=== PATIENT | female | born 1985 | race Caucasian/White ===

== ENCOUNTER 2016-08-26 11:24 | Emergency (ER) | payer MEDICAID, OTHER ==
[~2016-08-26] VITALS: Ht 177.8 cm; Wt 86.2 kg
[~2016-08-26 11:24] MED LIST: AGM875T PO; ALBU8.5H4 IH; AMOX500C2 PO; BSP10T PO; BUSP15TA60 PO; BUTA1CAP39 PO; CEPH500C PO; CIPR500T4 PO; CIPR500T78 PO; CPR500T PO; CYCL10TA9 PO; DOXY100C49 PO; FAMO20TA5 PO; FLT05NA16 NSEACH; FLUO20CA25 PO; FLUO20CA42 PO; FLUO40CA12 PO; FLUT9.9S NS; FOLI0.4T2 PO; HYDR-3714 PO; HYDR-3812 PO; METR500T PO; METR70GE8 VG; MGCT300B PO; NAPR500T3 PO; OMEP40CA36 PO; ONDA8TAB13 PO; PHEN100T26 PO; PHEN200T27 PO; POLY119P PO; PRCD5U PO; PRD20T PO; PRD50T PO; PREN1TAB19 PO; PREN1TAB71 PO; PRM25T PO; SUCR1ORA5 PO; SULF-222 PO; TOBR5DRO12 OS; TRAM50TA2 PO
[2016-08-26] MEDS ORDERED: BUSPAR (11:39)
[2016-08-26] MEDS ORDERED: MED FOR ANXIETY (11:39)
--- NOTE | 2016-08-26 11:45 | ED Cough/URI ---
General Chief Complaint: Cough/Cold/Flu Symptoms Stated Complaint: CONGESTION/SINUS PRESSURE Nursing Triage Note: COUGH CONGESTION FOR SEVERAL DAYS WITH SINUS PRESSURE. WOULD LIKE A PREG TEST ALSO Source: patient Exam Limitations: no limitations History of Present Illness Time seen by provider: 11:45 Initial Comments 31-year-old female patient presents to the emergency department complains of cough, sinus congestion, sinus pressure/pain, sore throat the last several days. (+) green nasal dsch. Patient also states she would like to have a test done as her period is 1-2 days late. LMP 07/25/16. Denies abdominal pain/cramping, nausea, vomiting, vaginal discharge, vaginal bleeding, dysuria, frequency, hematuria. Timing/Duration: other (3-4 days) Severity/Quality: dry cough Prior Episodes/Possible Cause: no prior episodes Modifying Factors: Worse With Coughing, Worse With Other (palpation of the sinuses) Allergies and Home Medications Allergies Coded Allergies: Sulfa (Sulfonamide Antibiotics) (Unverified Allergy, Unknown, 08/18/14) Home Medications (Reported) (Reported) Cephalexin 500 Mg Capsule #30 500 MG PO TID Prescribed by: RENATA CERDA on 08/26/16 1159 Prednisone 20 Mg Tab #10 40 MG PO DAILY Prescribed by: RENATA CERDA on 08/26/16 1159 Constitutional: No chills, No dizziness, No fever, malaise EENTM: see HPI Respiratory: see HPI Cardiovascular: no symptoms reported Gastrointestinal: no symptoms reported Genitourinary: see HPINo decreased output, No discharge, No dysuria, No frequency, No hematuria, No pain LMP: Jul 25, 2016 Musculoskeletal: no symptoms reported Skin: no symptoms reported Psychiatric/Neurological: No Symptoms Reported All Other Systems Reviewed Negative Unless Noted: Yes (Negative excepted noted.) Past Rmtewqy-Kxzmav-Obkqvb Hx Patient Social History Alcohol Use: Occasionally Uses Recreational Drug Use: No Smoking Status: Never a Smoker Type Used: Cigarettes Recent Foreign Travel: No Contact w/Someone Who Travel: No Recent Infectious Disease Expo: No Recent Hopitalizations: No Physical Abuse Screen: No Sexual Abuse: No Immunizations Up To Date Tetanus Booster (TDap): Unknown Date of Influenza Vaccine: May 20, 2012 Seasonal Allergies Seasonal Allergies: No Surgeries HX Surgeries: Yes (left knee surgery, WISDOM TEETH, D&C) Surgeries: Section, Gallbladder, Orthopedic Respiratory Hx Respiratory Disorders: No Cardiovascular Hx Cardiac Disorders: No Neurological Hx Neurological Disorders: Yes Neurological Disorders: Meningitis Reproductive System Hx Reproductive Disorders: No Sexually Transmitted Disease: Yes HIV/AIDS: No Female Reproductive Disorders: Denies, 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 Genitourinary Hx Genitourinary Disorders: Yes Genitourinary Disorders: UTI-Chronic Gastrointestinal Hx Gastrointestinal Disorders: Yes Gastrointestinal Disorders: Gastroesophageal Reflux, Hiatal Hernia Musculoskeletal Hx Musculoskeletal Disorders: No Endocrine Hx Endocrine Disorders: No HEENT HX ENT Disorders: No Cancer Hx Cancer: No Psychosocial Hx Psychiatric Problems: Yes Behavioral Health Disorders: Anxiety, PTSD, Depression Integumentary HX Skin/Integumentary Disorder: No Blood Transfusions Hx Blood Disorders: No Adverse Reaction to a Blood Tr: No Reviewed Nursing Assessment Reviewed/Agree w Nursing PMH: Yes Family Medical History Significant Family History: No Pertinent Family Hx Physical Exam Vital Signs Vital Sign - Last 12Hours 08/26/16 08/26/16 11:27 12:18 Temp 98.7 Pulse 96 Resp 18 B/P 110/70 Pulse Ox 98 O2 Delivery Room Air Capillary Refill : Less Than 3 Seconds General Appearance: WD/WN no apparent distress Eyes: Bilateral Eye EOMI, Bilateral Eye Normal Inspection, Bilateral Eye PERRL HEENT: PERRL/EOMI TMs normal pharyngeal erythema other ((+) nasal congestion. (+) maxillary sinus tenderness.) Neck: non-tender full range of motion supple lymphadenopathy (R) lymphadenopathy (L) Respiratory: lungs clear normal breath sounds no respiratory distress Cardiovascular: normal peripheral pulses regular rate, rhythm no edema no murmur Gastrointestinal: non tender softNo distended Extremities: no pedal edema no calf tenderness normal capillary refill Neurologic/Psychiatric: alert normal mood/affect oriented x 3 Skin: normal color warm/dry Progress/Results/Core Measures Results/Orders Vital Signs/I&O Vital Sign - Last 12Hours 08/26/16 08/26/16 11:27 12:18 Temp 98.7 Pulse 96 96 Resp 18 18 B/P 110/70 Pulse Ox 98 O2 Delivery Room Air Blood Pressure Mean: 83 Departure Communication Progress Notes Patient seen and evaluated. Patient denies any or GI symptoms. Patient advised to use an irvs-yer-cdctnbn test from [facility], [facility], etc. All return precautions discussed with the patient. Patient voices understanding and agrees with the treatment plan. Patient case discussed with Dr. Varela, he agrees with the plan of care. Impression Impression: Primary Impression: Sinusitis, acute maxillary Qualified Code: J01.00 - Acute maxillary sinusitis, unspecified Disposition: HOME, SELF-CARE Condition: Improved Departure-Patient Inst. Decision time for Depature: 11:57 Referrals: [facility] (PCP/Family) Primary Care Physician Patient Instructions: Sinusitis, Adult (DC) Add. Discharge Instructions: All discharge instructions reviewed with patient and/or family. Voiced understanding. Medications as instructed. Afrin nasal spray and saline nasal spray nuty-vfm-kjsezkk as needed for congestion. Tylenol gudi-smq-oplcfrf as needed for headache or pain. Use an ysls-utj-tmmryxr test. If test is negative, you may use ibuprofen 800 mg by mouth every 8 hours as a for pain or headache. Cool humidifier. Yitl-mcw-hsvawiz decongestants and antihistamines if needed. Follow-up with your family practitioner if needed. Return to the emergency department for worsened symptoms or any other concerns. Scripts Prednisone 20 Mg Tab40 Mg PO DAILY #10 TAB Ref 0 Prov:RENATA CERDA 08/26/16 Cephalexin 500 Mg [id number] Mg PO TID #30 CAP Ref 0 Prov:RENATA CERDA 08/26/16 RENATA CERDA Aug 26, 2016 11:45
[2016-08-26] MEDS ORDERED: PRD20T PO (11:59)
[2016-08-26] MEDS ORDERED: CEPH500C PO (11:59)
[2016-08-26 12:18] VITALS: BP 110/70
== END 2016-08-26 12:18 | disposition home or self-care (01) ==
LOC: EDUNIT# 11:24 → ER 11:26
DX: J01.90 Acute sinusitis, unspecified (principal); R05 Cough
CPT/HCPCS: 99282

== ENCOUNTER 2016-08-27 23:34 | Emergency (ER) | payer MEDICAID, OTHER ==
[~2016-08-27] VITALS: Ht 177.8 cm; Wt 86.2 kg
[~2016-08-27 23:34] MED LIST changes: +BUSPAR; +MED FOR ANXIETY
[2016-08-28] MEDS ORDERED: AZITHROMYCIN 250 MG TAB (ZITHROMAX) PO ONE ×2 (02:08→09:00)
[2016-08-28] MEDS ORDERED: cefTRIAXone 250 MG (ROCEPHIN) VIAL IM ONE (02:15)
[2016-08-28] MEDS ORDERED: LIDOCAINE 1% INJ 20 ML (XYLOCAINE) VIAL INJ ONE (02:15)
[2016-08-28] MEDS ORDERED: CLIN300C11 PO (02:17)
--- NOTE | 2016-08-28 02:18 | ED GU-Female ---
General Chief Complaint: -Female Stated Complaint: VAG BLEEDING, CRAMPING, DIZZY Nursing Triage Note: LLQ ABDOMINAL PAIN, BLOOD ON TOILET PAPER, NO PAD USED. LMP 07/25/16 Nursing Sepsis Screen: No Definite Risk Source: patient Exam Limitations: no limitations History of Present Illness Time seen by provider: 23:49 Initial Comments This patient presents to the ER as a transfer by private vehicle from [facility] where she was found to have pelvic pain and spotting with a positive hcg of 331. She was referred her for US. Her pain is minimal at this time. Last menstrual period was July 25. She does have history of vaginal infections and believes it is reasonable to pursue a pelvic exam. Allergies and Home Medications Allergies Coded Allergies: Sulfa (Sulfonamide Antibiotics) (Unverified Allergy, Unknown, 08/18/14) Home Medications (Reported) (Reported) Buspirone HCl 15 Mg Tablet #30 (Reported) Cephalexin 500 Mg Capsule #30 500 MG PO TID Prescribed by: RENATA CERDA on 08/26/16 1159 Clindamycin HCl 300 Mg Capsule #14 300 MG PO BID Prescribed by: CHANG TRAN on 08/28/16 0217 Prednisone 20 Mg Tab #10 40 MG PO DAILY Prescribed by: RENATA CERDA on 08/26/16 1159 Constitutional: no symptoms reported EENTM: no symptoms reported Respiratory: no symptoms reported Cardiovascular: no symptoms reported Gastrointestinal: see HPI Genitourinary: see HPI : Yes LMP: Jul 25, 2016 Musculoskeletal: no symptoms reported Skin: no symptoms reported Psychiatric/Neurological: No Symptoms Reported Endocrine: No Symptoms Reported Hematologic/Lymphatic: No Symptoms Reported Past Dxzumtm-Nnsnuq-Zrvvus Hx Patient Social History Alcohol Use: Denies Use Recreational Drug Use: No Smoking Status: Current Everyday Smoker Type Used: Cigarettes Recent Foreign Travel: No Contact w/Someone Who Travel: No Recent Infectious Disease Expo: No Recent Hopitalizations: No Physical Abuse Screen: No Sexual Abuse: No Immunizations Up To Date Tetanus Booster (TDap): Unknown Date of Influenza Vaccine: May 20, 2012 Seasonal Allergies Seasonal Allergies: No Surgeries HX Surgeries: Yes (left knee surgery, WISDOM TEETH, D&C) Surgeries: Section, Gallbladder, Orthopedic Respiratory Hx Respiratory Disorders: No Cardiovascular Hx Cardiac Disorders: No Neurological Hx Neurological Disorders: Yes Neurological Disorders: Meningitis Reproductive System : Yes Hx : 8 Hx Para: 5 Hx Total # of Abortions (Spona: 2 Hx Reproductive Disorders: No Sexually Transmitted Disease: Yes HIV/AIDS: No Female Reproductive Disorders: Denies, 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 Genitourinary Hx Genitourinary Disorders: Yes Genitourinary Disorders: UTI-Chronic Gastrointestinal Hx Gastrointestinal Disorders: Yes Gastrointestinal Disorders: Gastroesophageal Reflux, Hiatal Hernia Musculoskeletal Hx Musculoskeletal Disorders: No Endocrine Hx Endocrine Disorders: No HEENT HX ENT Disorders: No Cancer Hx Cancer: No Psychosocial Hx Psychiatric Problems: Yes Behavioral Health Disorders: Anxiety, PTSD, Depression Integumentary HX Skin/Integumentary Disorder: No Blood Transfusions Hx Blood Disorders: No Adverse Reaction to a Blood Tr: No Family Medical History Significant Family History: No Pertinent Family Hx Physical Exam Vital Signs Capillary Refill : Less Than 3 Seconds General Appearance: WD/WN no apparent distress HEENT: normal ENT inspection Cardiovascular: regular rate, rhythm no edema Respiratory: normal breath sounds no respiratory distress Gastrointestinal: soft tenderness (pelvic tenderness) Pelvic: normal external exam normal adnexa no cerv. 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 Departure Impression Impression: Primary Impression: Vaginal bleeding in Qualified Code: O46.91 - Antepartum hemorrhage, unspecified, first trimester Additional Impression: Bacterial vaginosis Disposition: HOME, SELF-CARE Condition: Stable Departure-Patient Inst. Decision time for Depature: 02:14 Referrals: [facility] (PCP/Family) Primary Care Physician Patient Instructions: Bacterial Vaginosis Add. Discharge Instructions: Complete your previously prescribed antibiotics and add clindamycin as prescribed tonight. No intercourse or anything vaginally until you review your final cultures with your obstetrical provider or primary care provider. Please follow-up with your doctor late this week. Return to care if you have any further symptoms. You will need to have your hormone levels and ultrasound repeated to determine the direction of your . Return to the ER if symptoms worsen. All discharge instructions reviewed with patient and/or family. Voiced understanding. Scripts Clindamycin HCl 300 Mg [id number] Mg PO BID #14 CAP Prov:CHANG MONDRAGON MD 08/28/16 Work/School Note: Work Release Form Date Seen in the Emergency Department: Aug 28, 2016 Return to Work: Aug 28, 2016 CHANG MONDRAGON MD Aug 28, 2016 02:18 follow-up with your doctor late this week. Return to care if you have any further symptoms. You will need to have your hormone levels and ultrasound repeated to determine the direction of your . Return to the ER if symptoms worsen. All discharge instructions reviewed with patient and/or family. Voiced understanding. Scripts Clindamycin HCl 300 Mg [id number] Mg PO BID #14 CAP Prov:CHANG MONDRAGON MD 08/28/16 Work/School Note: Work Release Form Date Seen in the Emergency Department: Aug 28, 2016 Return to Work: Aug 28, 2016 CHANG MONDRAGON MD Aug 28, 2016 02:18
[2016-08-28 02:22] VITALS: BP 120/75
--- NOTE | 2016-08-28 07:22 | Diagnostic Imaging Report ---
Clinical indication: Patient with left-sided pelvic pain. Beta-hCG is 330. Exam: Transvaginal ultrasound of the pelvis. Comparison: Pelvic ultrasound dated 03/26/2014. Findings: There is a small amount of fluid in the region of the endometrium seen which measures 2.1 cm x 4.5 cm x 0.7 cm. This endometrial fluid is nonspecific. The uterine myometrium appears thickened anteriorly which is not seen on the prior study. Otherwise uterus is unremarkable and measures 9.0 cm x 5.0 cm x 6.1 cm. Endometrial stripe measures 9 mm. Both ovaries have normal appearance and spectral Doppler waveform with no significant abnormality seen. There is no ovarian mass or evidence of torsion. The left ovary measures 3.1 cm x 1.9 cm x 2.4 cm. The right ovary measures 2.9 cm x 1.9 cm x 2.1 cm. There is no significant free fluid in the pelvis. Impression: 1: Nonspecific small amount of fluid in the endometrium. Given that patient has elevated beta hCG, followup pelvic ultrasound in 7 days and trending of hCG levels is suggested to further evaluate. Considerations would include a very early versus failed . There is no evidence of ectopic on this exam. 2: There is nonspecific asymmetric thickening of the uterus which is prominent anteriorly. There is no measurable mass seen. This should be followed on subsequent imaging. I agree with [employer] report. Dictated by: Dictated on workstation # [id number]
== END 2016-08-28 02:22 | disposition home or self-care (01) ==
LOC: EDUNIT# 23:34 → ER 23:37
DX: O46.91 Antepartum hemorrhage, unspecified, first trimester (principal); O99.331 Smoking (tobacco) complicating pregnancy, first trimester; Z3A.01 Less than 8 weeks gestation of pregnancy
CPT/HCPCS: 36415; 76817; 87070; 87210; 87220; 87491; 87591; 96372

== ENCOUNTER 2016-08-31 17:02 | Emergency (ER) | payer MEDICAID, OTHER ==
[~2016-08-31] VITALS: Ht 175.3 cm; Wt 86.2 kg
[~2016-08-31 17:02] MED LIST changes: +CLIN300C11 PO
[2016-08-31] MEDS ORDERED: BUSP15TA60 (17:22)
[2016-08-31 17:34] LABS: MEAN PLATELET VOLUME 8.6 FL (7.4-10.4); RED BLOOD COUNT 4.63 10^6/uL (4.35-5.85); RED CELL DISTRIBUTION WIDTH 15.2 % (10.0-14.5); WHITE BLOOD COUNT 6.8 10^3/uL (4.3-11.0)
--- NOTE | 2016-08-31 18:00 | ED GU-Female ---
General Chief Complaint: -Female Stated Complaint: BLEEDING;CRAMPING;POSITIVE TEST Nursing Triage Note: AMBULATED TO ROOM 09. HAS BEEN SEEN AT [facility], AND [facility] IN THE LAST THREE DAYS FOR PREGNACY RELATED PROBLEMS. WAS TOLD YESTERDAY HER QUANT WENT FROM 350 TO 480. WAS TOLD SHE NEEDED RECHECKED INCASE OF A TUBAL. THINKS SHE IS APPX 6WEEKS GESTATION. UNABLE TO GET INTO A DR. DENIES PAIN BUT HAS TO CHANGE HER PAD BID DUE TO BLEEDING. Nursing Sepsis Screen: No Definite Risk Source: patient Exam Limitations: no limitations History of Present Illness Time seen by provider: 17:58 Initial Comments To ER with reports of vaginal bleeding and changing her pad twice today. She had a positive test a few days ago. At that time I saw her at [facility] and she had a beta hCG Quant of 350. She was sent here to [place] for an ultrasound which was nonspecific and showed just a bit of fluid within the uterus but no pole/gestational sac and no adnexal masses. She was then seen at [facility] in [place] 2 days ago for pain and bleeding with a beta hCG Quant of 480 and she does have that paperwork with her to confirm that. Today her Quant is 158. She has bleeding but she denies any pain whatsoever today Timing/Duration: constant Severity/Quality: moderate Radiation: none Prior Genitourinary Problems: none Associated Symptoms: denies symptoms Allergies and Home Medications Allergies Coded Allergies: Sulfa (Sulfonamide Antibiotics) (Unverified Allergy, Unknown, 08/18/14) Home Medications (Reported) (Reported) Buspirone HCl 15 Mg Tablet #30 (Reported) Cephalexin 500 Mg Capsule #30 500 MG PO TID Prescribed by: RENATA CERDA on 08/26/16 1159 Clindamycin HCl 300 Mg Capsule #14 300 MG PO BID Prescribed by: CHANG TRAN on 08/28/16 0217 Prednisone 20 Mg Tab #10 40 MG PO DAILY Prescribed by: RENATA CERDA on 08/26/16 1159 Constitutional: see HPI EENTM: see HPI Respiratory: no symptoms reported Cardiovascular: no symptoms reported Genitourinary: no symptoms reported Musculoskeletal: no symptoms reported Skin: no symptoms reported Psychiatric/Neurological: No Symptoms Reported Past Zlbzgoo-Uwcsmw-Pwxaiz Hx Patient Social History Alcohol Use: Denies Use Recreational Drug Use: No Smoking Status: Current Everyday Smoker Type Used: Cigarettes Recent Foreign Travel: No Contact w/Someone Who Travel: No Recent Infectious Disease Expo: No Recent Hopitalizations: No Physical Abuse Screen: No Sexual Abuse: No Immunizations Up To Date Tetanus Booster (TDap): Unknown Date of Influenza Vaccine: May 20, 2012 Seasonal Allergies Seasonal Allergies: No Surgeries HX Surgeries: Yes (left knee surgery, WISDOM TEETH, D&C) Surgeries: Section, Gallbladder, Orthopedic Respiratory Hx Respiratory Disorders: No Cardiovascular Hx Cardiac Disorders: No Neurological Hx Neurological Disorders: Yes Neurological Disorders: Meningitis Reproductive System : Yes Hx Reproductive Disorders: No Sexually Transmitted Disease: Yes HIV/AIDS: No Female Reproductive Disorders: Denies, 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 Genitourinary Hx Genitourinary Disorders: Yes Genitourinary Disorders: UTI-Chronic Gastrointestinal Hx Gastrointestinal Disorders: Yes Gastrointestinal Disorders: Gastroesophageal Reflux, Hiatal Hernia Musculoskeletal Hx Musculoskeletal Disorders: No Endocrine Hx Endocrine Disorders: No HEENT HX ENT Disorders: No Cancer Hx Cancer: No Psychosocial Hx Psychiatric Problems: Yes Behavioral Health Disorders: Anxiety, PTSD, Depression Integumentary HX Skin/Integumentary Disorder: No Blood Transfusions Hx Blood Disorders: No Adverse Reaction to a Blood Tr: No Family Medical History Significant Family History: No Pertinent Family Hx Physical Exam Vital Signs Vital Sign - Last 12Hours 08/31/16 17:10 Temp 98.0 Pulse 94 Resp 18 B/P 118/74 Pulse Ox 99 Capillary Refill : Less Than 3 Seconds General Appearance: WD/WN no apparent distress HEENT: PERRL/EOMI normal ENT inspection Respiratory: no respiratory distress no accessory muscle use Gastrointestinal: normal bowel sounds non tender soft Extremities: normal range of motion non-tender Neurologic/Psychiatric: alert normal mood/affect oriented x 3 Skin: normal color warm/dry Progress/Results/Core Measures Results/Orders Lab Results Laboratory Tests Test 08/31/16 17:23 Range/Units Hematocrit 36 35-52 % Hemoglobin 11.7 11.5-16.0 G/DL Human Chorionic Gonadotropin, Quant 158 H <5 MIU/ML Mean Corpuscular Hemoglobin 25 25-34 PG Mean Corpuscular Hemoglobin Concent 33 32-36 G/DL Mean Corpuscular Volume 78 L 80-99 FL Mean Platelet Volume 8.6 7.4-10.4 FL Platelet Count 364 130-400 10^3/uL Red Blood Count 4.63 4.35-5.85 10^6/uL Red Cell Distribution Width 15.2 H 10.0-14.5 % White Blood Count 6.8 4.3-11.0 10^3/uL My Orders Orders-ARIK LEYVA APRN Cbc No Diff (08/31/16 17:11) Hcg,Quantitative (08/31/16 17:11) Vital Signs/I&O Vital Sign - Last 12Hours 08/31/16 17:10 Temp 98.0 Pulse 94 Resp 18 B/P 118/74 Pulse Ox 99 Blood Pressure Mean: 89 Departure Impression Impression: Primary Impression: Spontaneous miscarriage Disposition: HOME, SELF-CARE Condition: Stable Departure-Patient Inst. Decision time for Depature: 17:59 Referrals: [facility] (PCP/Family) Primary Care Physician Patient Instructions: Miscarriage Add. Discharge Instructions: 1. Follow-up with Dr. More as scheduled 2. Return to ER for any concerns. Your beta hCG quantitative today was 158. This is a significant decrease from 2 days ago and indicates a failed All discharge instructions reviewed with patient and/or family. Voiced understanding. ARIK LEYVA APRN Aug 31, 2016 18:00
[2016-08-31 18:04] VITALS: BP 118/74
== END 2016-08-31 18:04 | disposition home or self-care (01) ==
LOC: EDUNIT# 17:02 → ER 17:04
DX: O03.9 Complete or unspecified spontaneous abortion without complication (principal); F17.210 Nicotine dependence, cigarettes, uncomplicated; Z3A.01 Less than 8 weeks gestation of pregnancy
CPT/HCPCS: 36415; 84702; 85027; 99282

== ENCOUNTER 2016-10-01 14:55 | Emergency (ER) | payer MEDICAID, OTHER ==
[~2016-10-01] VITALS: Ht 167.6 cm; Wt 72.6 kg
[~2016-10-01 14:55] MED LIST changes: +BUSP15TA60
[2016-10-01 15:32] LABS: BILIRUBIN,URINE NEGATIVE (NEGATIVE); KETONES,URINE NEGATIVE (NEGATIVE); LEUKOCYTE ESTERASE ,URINE NEGATIVE (NEGATIVE); NITRITE,URINE NEGATIVE (NEGATIVE); PH,URINE 6 (5-9); PROTEIN,URINE NEGATIVE (NEGATIVE); UROBILINOGEN,URINE NORMAL (NORMAL)
[2016-10-01 15:41] LABS: SQUAMOUS EPITHELIAL CELL,UR 0-2 /HPF
[2016-10-01] MEDS ORDERED: PHEN-640 PO (16:01)
--- NOTE | 2016-10-01 16:01 | ED GU-Female ---
General Chief Complaint: -Female Stated Complaint: POSS UTI Nursing Triage Note: AMBULATED TO ROOM 02 WITH COMPLAINTS OF UTI SX X2 DAYS. Nursing Sepsis Screen: No Definite Risk Source: patient Exam Limitations: no limitations History of Present Illness Time seen by provider: 15:58 Initial Comments To ER with a 2 day history of urinary frequency as well as incomplete bladder emptying. Denies vaginal discharge. No fevers or chills. No nausea or vomiting. No abdominal pain. Timing/Duration: just prior to arrival Radiation: none Prior Genitourinary Problems: none Associated Symptoms: dysuria Allergies and Home Medications Allergies Coded Allergies: Sulfa (Sulfonamide Antibiotics) (Unverified Allergy, Unknown, 08/18/14) Home Medications (Reported) (Reported) Buspirone HCl 15 Mg Tablet #30 (Reported) Cephalexin 500 Mg Capsule #30 500 MG PO TID Prescribed by: RENATA CERDA on 08/26/16 1159 Clindamycin HCl 300 Mg Capsule #14 300 MG PO BID Prescribed by: CHANG TRAN on 08/28/16 0217 Prednisone 20 Mg Tab #10 40 MG PO DAILY Prescribed by: RENATA CERDA on 08/26/16 1159 Constitutional: see HPINo chills, No fever EENTM: see HPI Respiratory: no symptoms reported Cardiovascular: no symptoms reported Genitourinary: no symptoms reported Musculoskeletal: no symptoms reported Skin: no symptoms reported Psychiatric/Neurological: No Symptoms Reported Endocrine: No Symptoms Reported Past Pvcrrwi-Ycsfbe-Teifjb Hx Patient Social History Alcohol Use: Occasionally Uses Recreational Drug Use: No Smoking Status: Current Everyday Smoker Type Used: Cigarettes Recent Foreign Travel: No Contact w/Someone Who Travel: No Recent Infectious Disease Expo: No Recent Hopitalizations: No Immunizations Up To Date Tetanus Booster (TDap): Unknown Date of Influenza Vaccine: May 20, 2012 Seasonal Allergies Seasonal Allergies: No Surgeries HX Surgeries: Yes (left knee surgery, WISDOM TEETH, D&C) Surgeries: Section, Gallbladder, Orthopedic Respiratory Hx Respiratory Disorders: No Cardiovascular Hx Cardiac Disorders: No Neurological Hx Neurological Disorders: Yes Neurological Disorders: Meningitis Reproductive System Hx Reproductive Disorders: No Sexually Transmitted Disease: Yes HIV/AIDS: No Female Reproductive Disorders: Denies, 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 Genitourinary Hx Genitourinary Disorders: Yes Genitourinary Disorders: UTI-Chronic Gastrointestinal Hx Gastrointestinal Disorders: Yes Gastrointestinal Disorders: Gastroesophageal Reflux, Hiatal Hernia Musculoskeletal Hx Musculoskeletal Disorders: No Endocrine Hx Endocrine Disorders: No HEENT HX ENT Disorders: No Cancer Hx Cancer: No Psychosocial Hx Psychiatric Problems: Yes Behavioral Health Disorders: Anxiety, PTSD, Depression Integumentary HX Skin/Integumentary Disorder: No Blood Transfusions Hx Blood Disorders: No Adverse Reaction to a Blood Tr: No Family Medical History Significant Family History: No Pertinent Family Hx Physical Exam Vital Signs Vital Sign - Last 12Hours 10/01/16 15:20 Temp 99.3 Pulse 83 Resp 18 B/P 123/79 Pulse Ox 100 Capillary Refill : Less Than 3 Seconds General Appearance: WD/WN no apparent distress HEENT: PERRL/EOMI normal ENT inspection Neck: non-tender full range of motion Respiratory: normal breath sounds no respiratory distress no accessory muscle use Gastrointestinal: normal bowel sounds non tender soft Back: No CVA tenderness (R), No CVA tenderness (L) Extremities: normal range of motion non-tender Neurologic/Psychiatric: alert normal mood/affect oriented x 3 Skin: normal color warm/dry Progress/Results/Core Measures Results/Orders Lab Results Laboratory Tests Test 10/01/16 15:18 Range/Units Urine Bacteria NEGATIVE /HPF Urine Bilirubin NEGATIVE NEGATIVE Urine Casts NONE /LPF Urine Clarity CLEAR Urine Color YELLOW Urine Crystals NONE /LPF Urine Culture Indicated NO Urine Glucose (UA) NEGATIVE NEGATIVE Urine Ketones NEGATIVE NEGATIVE Urine Leukocyte Esterase NEGATIVE NEGATIVE Urine Mucus NEGATIVE /LPF Urine Nitrite NEGATIVE NEGATIVE Urine Protein NEGATIVE NEGATIVE Urine RBC NONE /HPF Urine RBC (Auto) NEGATIVE NEGATIVE Urine Specific [place] 1.020 1.016-1.022 Urine Squamous Epithelial Cells 0-2 /HPF Urine Urobilinogen NORMAL NORMAL MG/DL Urine WBC NONE /HPF Urine pH 6 5-9 My Orders Orders-ARIK LEYVA APRN Ua Culture If Indicated (10/01/16 15:25) Urine Bedside (10/01/16 15:25) Vital Signs/I&O Vital Sign - Last 12Hours 10/01/16 15:20 Temp 99.3 Pulse 83 Resp 18 B/P 123/79 Pulse Ox 100 Blood Pressure Mean: 94 Point of Care Testing Urine -Bedside: Negative Departure Impression Impression: Primary Impression: Dysuria Disposition: 01 HOME, SELF-CARE Condition: Stable Departure-Patient Inst. Decision time for Depature: 15:59 Referrals: [facility] (PCP/Family) Primary Care Physician Patient Instructions: Dysuria, Adult (DC) Add. Discharge Instructions: 1. Follow-up with her regular doctor this week for any worsening pain, persistent pain or fevers 2. Medication as directed All discharge instructions reviewed with patient and/or family. Voiced understanding. Scripts Phenazopyridine HCl (Pyridium)200 Mg Tablet1 Mg PO TID #9 Prov:ARIK LEYVA APRN 10/01/16 ARIK LEYVA APRN Oct 01, 2016 16:01
[2016-10-01 16:07] VITALS: BP 123/79
== END 2016-10-01 16:07 | disposition home or self-care (01) ==
LOC: EDUNIT# 14:55 → ER 14:57
DX: R30.0 Dysuria (principal); F17.210 Nicotine dependence, cigarettes, uncomplicated
CPT/HCPCS: 81000; 84703; 99282

== ENCOUNTER 2016-10-25 07:58 | Emergency (ER) | payer MEDICAID, OTHER ==
[~2016-10-25] VITALS: Ht 175.3 cm; Wt 86.2 kg
[~2016-10-25 07:58] MED LIST changes: +PHEN-640 PO
--- NOTE | 2016-10-25 08:05 | ED Cough/URI ---
General Stated Complaint: CONGESTION/COLD SYMPTOMS Source: patient History of Present Illness Time seen by provider: 08:01 Initial Comments C/O SORE THROAT C/O NASAL CONGESTION AND CLEAR DRAINAGE C/O SINUS PAIN/PRESSURE AND FRONTAL HEADACHE C/O MILD COUGH WITH CLEAR SPUTUM CHEST HURTS EARS HURT NO FEVER NO SHORTNESS OF BREATH OR WHEEZING NO DIFFICULTY SWALLOWING SYMPTOMS X 2 DAYS HAS TAKEN NOTHING FOR SYMPTOMS NO KNOWN SICK CONTACTS MALE S.O. BEING SEEN FOR UNRELATED PROBLEM MULTIPLE VISITS--5 VISITS IN 2017--VARIOUS COMPLAINTS [facility] [place] [facility] Allergies and Home Medications Allergies Coded Allergies: Sulfa (Sulfonamide Antibiotics) (Unverified Allergy, Unknown, 08/18/14) Home Medications (Reported) (Reported) Buspirone HCl 15 Mg Tablet #30 (Reported) Cephalexin 500 Mg Capsule #30 500 MG PO TID Prescribed by: RENATA CERDA on 08/26/16 1159 Clindamycin HCl 300 Mg Capsule #14 300 MG PO BID Prescribed by: CHANG TRAN on 08/28/16 0217 Phenazopyridine HCl 200 Mg Tablet #9 1 MG PO TID Prescribed by: ARIK LEYVA on 10/01/16 1601 Prednisone 20 Mg Tab #10 40 MG PO DAILY Prescribed by: RENATA CERDA on 08/26/16 1159 Constitutional: no symptoms reported EENTM: ear pain nose congestion see HPI throat pain Respiratory: see HPI coughNo short of breath, No wheezing Cardiovascular: see HPI chest pain (WITH COUGHING) Gastrointestinal: no symptoms reported Genitourinary: no symptoms reported LMP: Oct 04, 2016 Musculoskeletal: no symptoms reported Skin: no symptoms reported Psychiatric/Neurological: See HPI Headache Hematologic/Lymphatic: No Symptoms Reported Immunological/Allergic: no symptoms reported Past Uxnyydr-Guujpy-Brxcgr Hx Patient Social History Alcohol Use: Denies Use Recreational Drug Use: No Smoking Status: Current Everyday Smoker Type Used: Cigarettes Recent Foreign Travel: No Contact w/Someone Who Travel: No Recent Hopitalizations: No Immunizations Up To Date Tetanus Booster (TDap): Unknown Date of Influenza Vaccine: May 20, 2012 Seasonal Allergies Seasonal Allergies: No Surgeries HX Surgeries: Yes (left knee surgery, WISDOM TEETH, D&C) Surgeries: Section, Gallbladder, Orthopedic Respiratory Hx Respiratory Disorders: No Cardiovascular Hx Cardiac Disorders: No Neurological Hx Neurological Disorders: Yes Neurological Disorders: Meningitis Reproductive System Hx Reproductive Disorders: Yes Sexually Transmitted Disease: Yes HIV/AIDS: No Female Reproductive Disorders: Denies, 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 Genitourinary Hx Genitourinary Disorders: Yes Genitourinary Disorders: UTI-Chronic Gastrointestinal Hx Gastrointestinal Disorders: Yes Gastrointestinal Disorders: Gastroesophageal Reflux, Hiatal Hernia Musculoskeletal Hx Musculoskeletal Disorders: No Endocrine Hx Endocrine Disorders: No HEENT HX ENT Disorders: No Cancer Hx Cancer: No Psychosocial Hx Psychiatric Problems: Yes Behavioral Health Disorders: Anxiety, PTSD, Depression Integumentary HX Skin/Integumentary Disorder: No Blood Transfusions Hx Blood Disorders: No Adverse Reaction to a Blood Tr: No Family Medical History Significant Family History: No Pertinent Family Hx Physical Exam Vital Signs Vital Sign - Last 12Hours 10/25/16 08:10 Temp 98.1 Pulse 91 Resp 18 B/P 114/73 Capillary Refill : General Appearance: WD/WN no apparent distress HEENT: PERRL/EOMI TMs normalNo photophobia, pharyngeal erythemaNo tonsillar exudate, other (NASAL MUCOSAL EDEMA, CLEAR RHINORRHEA/POST NASAL DRAINAGE; FRONTAL AND MAXILLARY SINUS TENDERNESS) Neck: non-tender full range of motion supple normal inspection Respiratory: normal breath sounds no respiratory distress no accessory muscle use Cardiovascular: regular rate, rhythm no murmur Gastrointestinal: non tender soft Extremities: normal inspection 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 no motor/sensory deficits alert normal mood/affect oriented x 3 Skin: normal color warm/dry Progress/Results/Core Measures Results/Orders Lab Results Laboratory Tests Test 10/25/16 08:15 Range/Units Group A Streptococcus Screen NEGATIVE NEGATIVE Micro Results Microbiology 10/25/16 Influenza Types A,B Antigen (TALISHA) - Final, Complete My Orders Orders-EIVTA MCDOWELL DO Influenza A And B Antigens (10/25/16 08:09) Rapid Strep A Screen (10/25/16 08:17) Vital Signs/I&O Vital Sign - Last 12Hours 10/25/16 08:10 Temp 98.1 Pulse 91 Resp 18 B/P 114/73 Departure Impression Impression: Primary Impression: Upper respiratory infection Disposition: 01 HOME, SELF-CARE Condition: Stable Departure-Patient Inst. Referrals: [facility] (PCP/Family) Primary Care Physician Patient Instructions: Cough, Runny Nose, and the Common Cold (DC), Bacterial Upper Respiratory Infection, Adult (DC) Add. Discharge Instructions: TYLENOL AND MOTRIN NEEDED FOR PAIN OR FEVER LOTS OF CLEAR LIQUIDS ROBITUSSIN DM FOR COUGH FOLLOW UP WITH [facility] IN 3-5 DAYS IF NO BETTER Scripts Fluticasone Propionate (Flonase Allergy Relief)9.9 Ml [place].susp2 Sprays NS BID #1 SPRAY Prov:EVITA MCDOWELL DO 10/25/16 Loratadine/Pseudoephedrine (Claritin-D 12 Hour Tablet)1 Each Tab.er.12h1 Each PO BID #20 TAB Prov:EVITA MCDOWELL DO 10/25/16 Amoxicillin/Potassium Clav (Augmentin 875-125 Tablet)1 Each Tablet1 Each PO BID INFECTION #20 TAB Prov:EVITA MCDOWELL DO 10/25/16 EVITA MCDOWELL DO Oct 25, 2016 08:05
[2016-10-25] MEDS ORDERED: LORA1TAB59 PO (09:15)
[2016-10-25] MEDS ORDERED: AMOX-358 PO (09:15)
[2016-10-25] MEDS ORDERED: FLUT9.9S NS (09:15)
[2016-10-25 09:19] VITALS: BP 114/73
== END 2016-10-25 09:18 | disposition home or self-care (01) ==
LOC: EDUNIT# 07:58 → ER 08:01
DX: J06.9 Acute upper respiratory infection, unspecified (principal); F17.210 Nicotine dependence, cigarettes, uncomplicated
CPT/HCPCS: 87430; 87804; 99282

== ENCOUNTER 2016-12-29 18:26 | Emergency (ER) | payer MEDICAID ==
[~2016-12-29] VITALS: Ht 177.8 cm; Wt 86.2 kg
[~2016-12-29 18:26] MED LIST changes: +AMOX-358 PO; +LORA1TAB59 PO
--- NOTE | 2016-12-29 19:15 | ED General ---
General Chief Complaint: Cough/Cold/Flu Symptoms Stated Complaint: CONGESTION/COUGH/L EAR PAIN/YEAST INFECTION Nursing Triage Note: Ambulatory to ED 6 with reports of cough, congestion, left ear ache and possible yeast infection x 1 week. Patient denies OTC medication use to control symptoms and denies seeing PCP. Nursing Sepsis Screen: No Definite Risk Source of Information: Patient Exam Limitations: No Limitations History of Present Illness Time Seen by Provider: 19:15 Initial Comments Patient presents to the ED with c/o cough, chest congestion, and left ear pain. Patient also reports having a vaginal yeast infection. Patient was given antibiotics approx 4-6 wks ago. States she always gets yeast infections with antibiotics. Last pelvic exam 2 months ago. Timing/Duration: 1 Week Modifying Factors: worse with Other (denies using OTC meds.) Allergies and Home Medications Allergies Coded Allergies: Sulfa (Sulfonamide Antibiotics) (Unverified Allergy, Unknown, 08/18/14) Home Medications Albuterol Sulfate 6.7 Gm Hfa.aer.ad, 2 PUFF IH Q6H PRN for SHORTNESS OF BREATH, #1 Ref 0 Prescribed by: RENATA CERDA on 12/29/162003 Buspirone HCl 15 Mg Tablet, #30 (Reported) Doxycycline Hyclate 100 Mg Capsule, 100 MG PO BID, #14 Ref 0 Prescribed by: RENATA CERDA on 12/29/162003 Fluconazole 100 Mg Tablet, 100 MG PO DAILY, #10 Ref 0 Prescribed by: RENATA CERDA on 12/29/162003 Prednisone 20 Mg Tab, 40 MG PO DAILY, #10 Ref 0 Prescribed by: RENATA CERDA on 12/29/162003 [Buspar] , (Reported) [Med For Anxiety] , (Reported) Constitutional: No chills, No fever, malaise EENTM: ear pain, see HPI, No ear discharge, No mouth pain, No nose congestion, No nose pain, No throat pain, No throat swelling Respiratory: see HPI, cough, No phlegm, No short of breath, No wheezing ( reports occasional wheezIng, but none now.) Cardiovascular: no symptoms reported Gastrointestinal: No abdominal pain, No diarrhea, No nausea, No vomiting Genitourinary: see HPI, No decreased output, No discharge, No dysuria, No frequency, No hematuria, No pain, other (itching) Musculoskeletal: no symptoms reported Skin: no symptoms reported Psychiatric/Neurological: No Symptoms Reported All Other Systems Reviewed Negative Unless Noted: Yes (Negative excepted noted.) Past Mgtljmd-Cthael-Tgjshw Hx Patient Social History Alcohol Use: Occasionally Uses Recreational Drug Use: No Smoking Status: Current Someday Smoker Type Used: Cigarettes 2nd Hand Smoke Exposure: Yes Recent Foreign Travel: No Contact w/Someone Who Travel: No Recent Infectious Disease Expo: No Recent Hopitalizations: No Immunizations Up To Date Tetanus Booster (TDap): Unknown Date of Influenza Vaccine: Jul 20, 2016 Seasonal Allergies Seasonal Allergies: No Surgeries HX Surgeries: Yes (left knee surgery, WISDOM TEETH, D&C) Surgeries: Section, Gallbladder, Orthopedic Respiratory Hx Respiratory Disorders: No Cardiovascular Hx Cardiac Disorders: No Neurological Hx Neurological Disorders: Yes Neurological Disorders: Meningitis Reproductive System Hx Reproductive Disorders: Yes Sexually Transmitted Disease: Yes HIV/AIDS: No Female Reproductive Disorders: Denies, 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 Genitourinary Hx Genitourinary Disorders: Yes Genitourinary Disorders: UTI-Chronic Gastrointestinal Hx Gastrointestinal Disorders: Yes Gastrointestinal Disorders: Gastroesophageal Reflux, Hiatal Hernia Musculoskeletal Hx Musculoskeletal Disorders: No Endocrine Hx Endocrine Disorders: No HEENT HX ENT Disorders: No Cancer Hx Cancer: No Psychosocial Hx Psychiatric Problems: Yes Behavioral Health Disorders: Anxiety, PTSD, Depression Integumentary HX Skin/Integumentary Disorder: No Blood Transfusions Hx Blood Disorders: No Adverse Reaction to a Blood Tr: No Reviewed Nursing Assessment Reviewed/Agree w Nursing PMH: Yes Family Medical History Significant Family History: No Pertinent Family Hx Physical Exam Vital Signs Vital Sign - Last 12Hours 12/29/16 18:45 Temp 98.5 Pulse 74 Resp 16 B/P (MAP) 120/78 Pulse Ox 100 O2 Delivery Room Air Capillary Refill : Less Than 3 Seconds General Appearance: No Apparent Distress, WD/WN HEENT: PERRL/EOMI, TMs Normal, Normal ENT Inspection, Pharynx Normal Neck: Full Range of Motion, Normal Inspection, Non Tender, Supple Respiratory: Lungs Clear, Normal Breath Sounds, No Accessory Muscle Use, No Respiratory Distress Cardiovascular: Regular Rate, Rhythm, No Murmur Gastrointestinal: Normal Bowel Sounds, Non Tender, Soft, No Distended Extremity: Normal Capillary Refill Neurologic/Psychiatric: Alert, Oriented x3, Normal Mood/Affect Skin: Normal Color, Warm/Dry Progress/Results/Core Measures Results/Orders Lab Results Laboratory Tests Test 12/29/16 19:35 Range/Units Urine Color YELLOW Urine Clarity CLEAR Urine pH 6 5-9 Urine Specific [place] 1.025 H 1.016-1.022 Urine Protein NEGATIVE NEGATIVE Urine Glucose (UA) NEGATIVE NEGATIVE Urine Ketones NEGATIVE NEGATIVE Urine Nitrite NEGATIVE NEGATIVE Urine Bilirubin NEGATIVE NEGATIVE Urine Urobilinogen NORMAL NORMAL MG/DL Urine Leukocyte Esterase 1+ H NEGATIVE Urine RBC (Auto) 1+ H NEGATIVE Urine RBC 0-2 /HPF Urine WBC 0-2 /HPF Urine Squamous Epithelial Cells RARE /HPF Urine Crystals NONE /LPF Urine Bacteria NONE /HPF Urine Casts NONE /LPF Urine Mucus NEGATIVE /LPF Urine Culture Indicated NO My Orders Orders - RENATA CERDA PA Chest Pa/Lat (2 View) (12/29/16 19:30) Ua Culture If Indicated (12/29/16 19:30) Benzonatate Capsule (Tessalon Perles) (12/29/16 19:45) Urine Bedside (12/29/16 19:36) Vital Signs/I&O Blood Pressure Mean: 92 Diagnostic Imaging Diagonstic Imaging: Xray Plain Films/CT/US/NM/MRI: chest Comments CHEST PA/LAT (2 VIEW) INDICATION: Shortness of breath. PA and lateral views of the chest were obtained. FINDINGS: The heart size, mediastinal configuration, and pulmonary vascularity are within normal limits. There is no pleural effusion , pneumothorax, or pneumonia. The osseous structures are unremarkable. IMPRESSION: No acute cardiopulmonary abnormality. Dictated by: Dictated on workstation # [id number] Reviewed: Reviewed by Me (radiology report reviewed by me) Departure Communication Progress Notes diagnostic findings and lab findings were discussed with the patient. Plan for dsch to home. Impression Impression: Primary Impression: Acute bronchitis Qualified Codes: J20.9 - Acute bronchitis, unspecified Disposition: HOME, SELF-CARE Condition: Improved Departure-Patient Inst. Decision time for Depature: 20:01 Referrals: [facility] (PCP/Family) Primary Care Physician Patient Instructions: Acute Bronchitis, Adult (DC), Vaginal Yeast Infection (DC ) Add. Discharge Instructions: All discharge instructions reviewed with patient and/or family. Voiced understanding. Medications as instructed. Tylenol Extra Strength over-the- counter as directed for pain or fever. Ibuprofen 800 mg by mouth every 8 hours as needed for pain or fever. Cool humidifier if needed. Jhnw-qtb-reqiiup decongestants and cough suppressants for symptoms as directed. Follow-up with your primary care physician for recheck if no improvement in symptoms. Return to the emergency department for worsened symptoms or any other concerns. Scripts Albuterol Sulfate (Proventil Hfa) 6.7 Gm Hfa.aer.ad 2 PUFF IH Q6H Y for SHORTNESS OF BREATH, #1 EACH 0 Refills Prov: RENATA CERDA 12/29/16 Prednisone (Prednisone) 20 Mg Tab 40 MG PO DAILY, #10 TAB 0 Refills Prov: RENATA CERDA 12/29/16 Fluconazole (Fluconazole) 100 Mg Tablet 100 MG PO DAILY, #10 TAB 0 Refills Prov: RENATA CERDA 12/29/16 Doxycycline Hyclate (Doxycycline Hyclate) 100 Mg Capsule 100 MG PO BID, #14 CAP 0 Refills Prov: RENATA CERDA 12/29/16 Work/School Note: Work Release Form Date Seen in the Emergency Department: December 29, 2016 Return to Work: December 31, 2016 RENATA CERDA December 29, 2016 19:15
[2016-12-29] MEDS ORDERED: BENZONATATE 100 MG (TESSALON) CAPSULE PO ONE (19:45)
[2016-12-29 19:49] LABS: BILIRUBIN,URINE NEGATIVE (NEGATIVE); KETONES,URINE NEGATIVE (NEGATIVE); LEUKOCYTE ESTERASE ,URINE 1+ (NEGATIVE); NITRITE,URINE NEGATIVE (NEGATIVE); PH,URINE 6 (5-9); PROTEIN,URINE NEGATIVE (NEGATIVE); UROBILINOGEN,URINE NORMAL (NORMAL)
--- NOTE | 2016-12-29 19:55 | Diagnostic Imaging Report ---
INDICATION: Shortness of breath. PA and lateral views of the chest were obtained. FINDINGS: The heart size, mediastinal configuration, and pulmonary vascularity are within normal limits. There is no pleural effusion, pneumothorax, or pneumonia. The osseous structures are unremarkable. IMPRESSION: No acute cardiopulmonary abnormality. Dictated by: Dictated on workstation # [id number]
[2016-12-29 19:56] LABS: SQUAMOUS EPITHELIAL CELL,UR RARE /HPF; WBC,URINE 0-2 /HPF
[2016-12-29] MEDS ORDERED: DOXY100C2 PO (20:04)
[2016-12-29] MEDS ORDERED: PRD20T PO (20:04)
[2016-12-29] MEDS ORDERED: RT-ALBUINH IH (20:04)
[2016-12-29] MEDS ORDERED: FLUC100T6 PO (20:04)
[2016-12-29 20:12] VITALS: BP 120/78
== END 2016-12-29 20:12 | disposition home or self-care (01) ==
LOC: EDUNIT# 18:26 → ER 18:28
DX: J20.9 Acute bronchitis, unspecified (principal); H92.02 Otalgia, left ear; B37.3 Candidiasis of vulva and vagina; F17.210 Nicotine dependence, cigarettes, uncomplicated
CPT/HCPCS: 71020; 81000; 84703; 99282

== ENCOUNTER → 2017-03-02 | Emergency (ER) | payer MEDICAID ==
[~2017-03-02] VITALS: Ht 177.8 cm; Wt 88.5 kg
[~2017-03-02] MED LIST changes: +ACETAMINOPHEN 500 MG TAB (TYLENOL) PO ONE; +DOXY100C2 PO; +FLUC100T6 PO; +RT-ALBUINH IH; +TETANUS,DIPTH,PERTUSS P/F (BOOSTRIX) 0.5 ML VIAL IM ONE
--- OUTSIDE RECORDS SUMMARY | 2017-03-02 14:38 | XMS REPORT ---
Author Author TAO PHILLIP [facility] eClinicalWorks Address Unknown Phone Unavailable Care Team Providers Care Trolley Operator Name Role Phone TAO PHILLIP CP Unavailable Allergies, Adverse Reactions, Alerts Substance Reaction Event Type Sulfamethoxazole-Trimethoprim nausea, headache, fingers tingling Drug Allergy Problems Problem Type Condition Code Onset Dates Condition Status Assessment Diarrhea, unspecified R19.7 Active Assessment Anxiety disorder, unspecified F41.9 Active Problem Special screening examination, human papillomavirus [HPV] V73.81 Active Problem Dysthymic disorder 300.4 Active Problem Abdominal pain, left lower quadrant 789.04 Active Problem Encounter for removal of intrauterine contraceptive device V25.12 Active Problem General counseling for prescription of oral contraceptives V25.01 Active Problem examination or test, positive result V72.42 Active Problem Depressive disorder, not elsewhere classified 311 Active Problem Supervision of other normal V22.1 Active Problem Acute upper respiratory infections of unspecified site 465.9 Active Problem Nausea alone 787.02 Active Problem Acute sinusitis, unspecified 461.9 Active Problem Posttraumatic stress disorder 309.81 Active Problem Anxiety state, unspecified 300.00 Active Problem Major depressive disorder, recurrent episode, moderate 296.32 Active Problem Nausea R11.0 Active Problem Depression 311 Active Problem Need for prophylactic vaccination and inoculation, Influenza V04.81 Active Problem examination or test, negative result V72.41 Active Problem Anxiety disorder, unspecified F41.9 Active Problem Acute pharyngitis 462 Active Problem Threatened , unspecified as to episode of care 640.00 Active Problem Unspecified spontaneous without mention of complication 634.90 Active Problem state, incidental V22.2 Active Problem Infections of genitourinary tract in , unspecified as to episode of care 646.60 Active Problem Acute laryngitis, without mention of obstruction 464.00 Active Problem Shortness of breath 786.05 Active Problem Generalized anxiety disorder 300.02 Active Problem Adjustment disorder with mixed anxiety and depressed mood 309.28 Active Problem Pneumonia, organism unspecified 486 Active Problem Screening for malignant neoplasm of the cervix V76.2 Active Problem Fever, unspecified 780.60 Active Problem Cough 786.2 Active Medications Medication Code System Code Instructions Start Date End Date Status Dosage BusPIRone HCl [facility] [address]-90 7.5 MG Orally Twice a day May 25, 2015 1 tablet Clonazepam [facility] [address]-26 0.5 MG Orally Twice a day as needed May 24, 2015 .5-1 tablet Omeprazole [facility] [address]-89 20 MG Orally Once a day May 24, 2015 1 capsule Fluoxetine HCl [facility] [address]-97 20 MG Orally Once a day Apr 28, 2015 1 capsule in the morning Procedures Procedure Coding System Code Date URINE TEST CPT-4 63698 May 31, 2015 IMMUNOASSAY,INFECTIOUS AGENT CPT-4 55237 May 31, 2015 Office Visit, Est Pt., Level 3 CPT-4 37217 May 31, 2015 Vital Signs Date/Time: May 31, 2015 Temperature 98.6 F Weight 186 lbs Height 71 in BMI 25.94 Index Blood Pressure Diastolic 64 mmHg Blood Pressure Systolic 100 mmHg Cardiac Monitoring Heart Rate 84 bpm Results Name Result Date Reference Range Unit Abnormality Flag H PYLORI (IN HOUSE) TEST, URINE (IN HOUSE) Summary Purpose eClinicalWorks Submission
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
--- OUTSIDE RECORDS SUMMARY | 2017-03-02 14:39 | XMS REPORT ---
Author Author ATO PHILLIP Organization eClinicalWorks Address Unknown Phone Unavailable Care Team Providers Care Tractor Sweeper Driver Name Role Phone TAO PHILLIP CP Unavailable Allergies, Adverse Reactions, Alerts Substance Reaction Event Type Sulfacet-R Info Not Available Drug Allergy Problems Problem Type Condition ICD-9 Code Onset Dates Condition Status Assessment Depression 311 Active Problem Dysthymic disorder 300.4 Active Problem Special screening examination, human papillomavirus [HPV] V73.81 Active Problem Abdominal pain, left lower quadrant 789.04 Active Problem Encounter for removal of intrauterine contraceptive device V25.12 Active Problem General counseling for prescription of oral contraceptives V25.01 Active Problem Pneumonia, organism unspecified 486 Active Problem examination or test, positive result V72.42 Active Problem Screening for malignant neoplasm of the cervix V76.2 Active Problem Depressive disorder, not elsewhere classified 311 Active Problem Supervision of other normal V22.1 Active Problem Posttraumatic stress disorder 309.81 Active Problem Nausea alone 787.02 Active Problem state, incidental V22.2 Active Problem Infections of genitourinary tract in , unspecified as to episode of care 646.60 Active Problem Acute pharyngitis 462 Active Problem Acute sinusitis, unspecified 461.9 Active Problem Depression 311 Active Problem Acute upper respiratory infections of unspecified site 465.9 Active Problem Anxiety state, unspecified 300.00 Active Problem Major depressive disorder, recurrent episode, moderate 296.32 Active Problem Threatened , unspecified as to episode of care 640.00 Active Problem Unspecified spontaneous without mention of complication 634.90 Active Problem Generalized anxiety disorder 300.02 Active Problem Adjustment disorder with mixed anxiety and depressed mood 309.28 Active Problem examination or test, negative result V72.41 Active Problem Need for prophylactic vaccination and inoculation, Influenza V04.81 Active Problem Fever, unspecified 780.60 Active Problem Cough 786.2 Active Problem Acute laryngitis, without mention of obstruction 464.00 Active Problem Shortness of breath 786.05 Active Medications Medication Code System Code Instructions Start Date End Date Status Dosage Fluoxetine HCl NDC [address]-79 20 MG Orally Once a day Apr 28, 2015 1 capsule in the morning Procedures Procedure Coding System Code Date Office Visit, Est Pt., Level 3 CPT-4 63865 Apr 28, 2015 Vital Signs Date/Time: Apr 28, 2015 Temperature 98.8 F Weight 197 lbs Height 71 in BMI 27.47 Index Blood Pressure Diastolic 80 mmHg Blood Pressure Systolic 115 mmHg Cardiac Monitoring Heart Rate 88 bpm Results No Known Results Summary Purpose eClinicalWorks Submission
--- OUTSIDE RECORDS SUMMARY | 2017-03-02 14:39 | XMS REPORT ---
Author Author TAO PHILLIP [facility] eClinicalWorks Address Unknown Phone Unavailable Care Team Providers Care Blindstitch Machine Operator Name Role Phone TAO PHILLIP CP Unavailable Allergies No Known Allergies Problems Problem Type Condition Code Onset Dates [...] 311 Active Problem Fever, unspecified 780.60 Active Problem [...] Instructions Start Date End Date Status Dosage Omeprazole [facility] [address]-00 20 MG Orally Once a day May 24, 2015 1 capsule Results No Known Results Summary Purpose eClinicalWorks Submission
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
--- OUTSIDE RECORDS SUMMARY | 2017-03-02 14:41 | XMS REPORT ---
Author Author TAO PHILLIP Organization eClinicalWorks Address Unknown Phone Unavailable Care Team Providers Care Route Delivery Manager Name Role Phone TAO PHILLIP CP Unavailable Allergies No Known Allergies Problems Problem Type Condition ICD-9 Code Onset Dates Condition Status Problem Dysthymic disorder 300.4 Active Problem Special [...] Problem Shortness of breath 786.05 Active Medications No Known Medications Results No Known Results Summary Purpose eClinicalWorks Submission
--- OUTSIDE RECORDS SUMMARY | 2017-03-02 14:41 | XMS REPORT ---
Author Author TAO PHILLIP [facility] eClinicalWorks Address Unknown Phone Unavailable Care Team Providers Care Enforcement Manager Name Role Phone TAO PHILLIP CP [...] Nausea R11.0 Active Problem Depression 311 Active Assessment Adjustment disorder with mixed anxiety and depressed mood 309.28 Active Problem Fever, unspecified 780.60 Active Assessment Encounter for immunization Z23 Active Problem Cough 786.2 Active Problem Acute laryngitis, without mention of obstruction 464.00 Active Assessment Reflux esophagitis K21.0 Active Problem Shortness of breath 786.05 Active Problem Supervision of other normal V22.1 Active Problem Nausea alone 787.02 Active Problem Pneumonia, organism unspecified 486 Active Problem Screening for malignant neoplasm of the cervix V76.2 Active Medications Medication Code System Code Instructions Start Date End Date Status Dosage Clonazepam [facility] [address]-98 0.5 MG Orally Twice a day as needed May 24, 2015 .5-1 tablet BusPIRone HCl [facility] [address]-30 15 MG Orally Twice a day May 25, 2015 1 tablet Fluoxetine HCl [facility] [address]-42 40 MG Orally Once a day Apr 28, 2015 1 capsule in the morning Omeprazole [facility] [address]-92 20 MG Orally Once a day May 24, 2015 1 capsule Procedures Procedure Coding System Code Date SINGLE IMMUNIZATION ADMIN CPT-4 81846 Jun 10, 2015 Office Visit, Est Pt., Level 3 CPT-4 36130 Jun 10, 2015 FLUARIX QUAD (3 & UP[employer]-2014 CPT-4 16296 Jun 10, 2015 Vital Signs Date/Time: Jun 10, 2015 Temperature 98.5 F Weight 186 lbs Height 71 in BMI 25.94 Index Blood Pressure Diastolic 76 mmHg Blood Pressure Systolic 120 mmHg Cardiac Monitoring Heart Rate 98 bpm Results No Known Results Immunizations Vaccine Administration Date FLUARIX QUAD (3 & UP[employer]-2014Jun 10, 2015 Summary Purpose eClinicalWorks Submission
--- OUTSIDE RECORDS SUMMARY | 2017-03-02 14:42 | XMS REPORT ---
Author Author TAO PHILLIP [facility] eClinicalWorks Address Unknown Phone Unavailable Care Team Providers Care Remedial Reading Teacher Name Role Phone TAO PHILLIP CP Unavailable [...] Date End Date Status Dosage BusPIRone HCl [facility] [address]-53 15 MG Orally Twice a day May 25, [address] [facility] [address]-29 0.5 MG Orally Twice a day as needed May 24, 2015 .5-1 tablet Flu[address] HCl [facility] [address]-94 40 MG Orally Once a day Apr 28, 2015 1 capsule in the morning Results No Known Results Summary Purpose eClinicalWorks Submission
--- OUTSIDE RECORDS SUMMARY | 2017-03-02 14:42 | XMS REPORT ---
Author Author TAO PHILLIP [facility] eClinicalWorks Address Unknown Phone Unavailable Care Team Providers Care Plastic Press Molder Name Role Phone TAO PHILLIP CP Unavailable [...] neoplasm of the cervix V76.2 Active Medications No Known Medications Results No Known Results Summary Purpose eClinicalWorks Submission
--- OUTSIDE RECORDS SUMMARY | 2017-03-02 14:42 | XMS REPORT ---
Author Author TAO PHILLIP [facility] eClinicalWorks Address Unknown Phone Unavailable Care Team Providers Care Blast Setter Name Role Phone TAO PHILLIP CP Unavailable [...] Start Date End Date Status Dosage Omeprazole [facility] [address]-64 40 mg Orally Once a day, NEEDS APPT BEFORE ANY FURTHER REFILLS May 24, 2015 1 capsule Results No Known Results Summary Purpose eClinicalWorks Submission
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
--- NOTE | 2017-03-02 15:54 | Diagnostic Imaging Report ---
Indication: Right shoulder injury 3 views of the right shoulder show no fracture, dislocation or acute abnormalities. Impression: Negative right shoulder Dictated by: Dictated on workstation # [id number]
--- NOTE | 2017-03-02 15:55 | Diagnostic Imaging Report ---
Indication: Right rib injury 3 views of the right ribs do not show any displaced fractures. There is no effusion or pneumothorax. Impression: Negative right ribs Dictated by: Dictated on workstation # [id number]
[2017-03-02 16:18] VITALS: BP 115/82
== END | disposition home or self-care (01) ==
LOC: EDUNIT# 14:29 → ER 14:35
DX: S49.91XA Unspecified injury of right shoulder and upper arm, initial encounter (principal); S09.93XA Unspecified injury of face, initial encounter; K21.9 Gastro-esophageal reflux disease without esophagitis; F41.9 Anxiety disorder, unspecified; F32.9 Major depressive disorder, single episode, unspecified; F43.10 Post-traumatic stress disorder, unspecified; Z23 Encounter for immunization; Z90.49 Acquired absence of other specified parts of digestive tract; Z98.890 Other specified postprocedural states; Z86.61 Personal history of infections of the central nervous system; Z97.5 Presence of (intrauterine) contraceptive device; Y04.0XXA Assault by unarmed brawl or fight, initial encounter
CPT/HCPCS: 71100; 73030; 90715; 99284

== ENCOUNTER 2017-04-20 11:26 | Emergency (ER) | payer MEDICAID ==
[~2017-04-20] VITALS: Ht 177.8 cm; Wt 86.2 kg
[~2017-04-20 11:26] MED LIST changes: -ACETAMINOPHEN 500 MG TAB (TYLENOL) PO ONE; -NAPR500T3 PO; +NAPR500T4 PO; -TETANUS,DIPTH,PERTUSS P/F (BOOSTRIX) 0.5 ML VIAL IM ONE
--- OUTSIDE RECORDS SUMMARY | 2017-04-20 11:38 | XMS REPORT ---
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 98590291 Problem Encounter for dental examination Z01.20 Active 803743510 Problem Reflux esophagitis K21.0 Active 702901243 Problem Dysthymia F34.1 Active 28366486 Problem Dyspepsia R10.13 Active 478830628 ALLERGIES Substance Reaction Event Type Date Status Sulfamethoxazole-Trimethoprim nausea, headache, fingers tingling Drug Allergy Jul, Active SOCIAL HISTORY No smoking Hx information available PLAN OF CARE Activity Details Follow Up 4 Weeks Reason:anxiety VITAL SIGNS Height 71 in 2016-08-03 Weight 196.8 lbs 2016-08-03 Temperature 97.7 degrees Fahrenheit 2016-08-03 Heart Rate 76 bpm 2016-08-03 Respiratory Rate 18 2016-08-03 BMI 27.45 kg/m2 2016-08-03 Blood pressure systolic 110 mmHg 2016-08-03 Blood pressure diastolic 64 mmHg 2016-08-03 MEDICATIONS Medication Instructions Dosage Frequency Start Date End Date Duration Status Venlafaxine HCl ER 37.5 MG Orally Once a day 1 capsule with food 24h May Active BuSpar 15 MG Orally Twice a day .5 tablet 12h Jul, Active Venlafaxine HCl 50 mg Orally Twice a day 1 tablet with food 12h Jul, Active Omeprazole 40 mg Orally Once a day, NEEDS APPT BEFORE ANY FURTHER REFILLS 1 capsule May, Active RESULTS No Results PROCEDURES Procedure Date Ordered Related Diagnosis Body Site Office Visit, Est Pt., Level 3 Aug 03, 2016 IMMUNIZATIONS No Known Immunizations
--- OUTSIDE RECORDS SUMMARY | 2017-04-20 11:38 | XMS REPORT ---
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 77543544 Problem Encounter for dental examination Z01.20 Active 605404870 Problem Reflux esophagitis K21.0 Active 436944688 Problem Dyspepsia R10.13 Active 399087397 Problem Dysthymia F34.1 Active 35955413 ALLERGIES No Known Allergies SOCIAL HISTORY No smoking Hx information available PLAN OF CARE VITAL SIGNS MEDICATIONS Medication Instructions Dosage Frequency Start Date End Date Duration Status Venlafaxine HCl 50 mg Orally Twice a day 1 tablet with food 12h Jul, Active BuSpar 15 MG Orally Twice a day .5 tablet 12h 15 Jul, 2016 Active Venlafaxine HCl ER 37.5 MG Orally Once a day 1 capsule with food 24h 17 May Active RESULTS No Results PROCEDURES No Known procedures IMMUNIZATIONS No Known Immunizations
[2017-04-20] MEDS ORDERED: NS IV 1000 ML 1,000 ML IV ONE (12:28)
[2017-04-20] MEDS ORDERED: ONDANSETRON 4 MG/2 ML (SDV) Z0FRAN IVP ONE (12:30)
--- NOTE | 2017-04-20 12:30 | ED GU-Female ---
General Chief Complaint: Abdominal/GI Problems Stated Complaint: THROWING UP/POSSIBLE DEHYDRATION 10 WEEKS PREG Nursing Triage Note: pt reports abdominal pain and vomiting since yesterday. pt states she is 10 weeks . Nursing Sepsis Screen: No Definite Risk Source: patient Exam Limitations: no limitations History of Present Illness Time seen by provider: 12:29 Initial Comments 31-year-old female patient presents to the emergency department with complaints of epigastric pain and vomiting beginning yesterday. Does complain of heartburn and indigestion. Patient is 10 weeks . Denies dysuria, frequency, hematuria, vaginal bleeding, or vaginal discharge. Patient is seeing Dr. More in [place], [place]. Patient states she is previously on omeprazole, but had to stop this due to the . Forgot to tell Dr. More she was taking this medication. Timing/Duration: yesterday Severity/Quality: burning Location: other (epigastric) Radiation: none Activities at Onset: none Prior Genitourinary Problems: similar symptoms Modifying Factors: Worsens With Eating, Worsens With Palpation, Worsens With Other (spicy foods) Allergies and Home Medications Allergies Coded Allergies: Sulfa (Sulfonamide Antibiotics) (Unverified Allergy, Unknown, 08/18/14) Home Medications Albuterol Sulfate 6.7 Gm Hfa.aer.ad, 2 PUFF IH Q6H PRN for SHORTNESS OF BREATH, #1 Ref 0 Prescribed by: RENATA CERDA on 12/29/162003 Amoxicillin 500 Mg Capsule, 500 MG PO TID, #21 Prescribed by: ARIK LEYVA on 04/23/17 1340 Buspirone HCl 15 Mg Tablet, #30 (Reported) Diphenhydramine HCl 25 Mg Capsule, 25 MG PO TID PRN for RUNNY NOSE, #30 Prescribed by: ARIK LEYVA on 04/23/17 1340 Doxylamine/Pyridoxine HCl 1 Each Tablet.dr, 2 EACH PO HS, #14 Ref 0 Prescribed by: RENATA CERDA on 04/20/17 1400 Famotidine 20 Mg Tablet, 20 MG PO BID PRN for HEARTBURN, #20 Ref 0 Prescribed by: RENATA ECRDA on 04/20/17 1400 [Buspar] , (Reported) [Med For Anxiety] , (Reported) Constitutional: No chills, No dizziness, No fever, No malaise EENTM: no symptoms reported Respiratory: No cough, No dyspnea on exertion, No short of breath Cardiovascular: No chest pain, No edema, No palpitations, No syncope Gastrointestinal: see HPI, abdominal pain (epigastric pain), No constipation, No diarrhea, No hematemesis, heartburn, No melena, nausea, vomiting Genitourinary: denies burning, denies discharge, denies dysuria, denies frequency, denies flank pain, denies hematuria, denies pain : Yes Musculoskeletal: no symptoms reported Skin: no symptoms reported Psychiatric/Neurological: No Symptoms Reported All Other Systemes Reviewed Negative Unless Noted: Yes (Negative excepted noted.) Past Zojpduu-Wxuacn-Kzqetf Hx Patient Social History Alcohol Use: Denies Use Recreational Drug Use: No Type Used: Cigarettes 2nd Hand Smoke Exposure: Yes Recent Foreign Travel: No Contact w/Someone Who Travel: No Recent Infectious Disease Expo: No Recent Hopitalizations: No Physical Abuse: No Sexual Abuse: No Mistreated: No Fear: No Immunizations Up To Date Tetanus Booster (TDap): Unknown Date of Influenza Vaccine: Jul 20, 2016 Seasonal Allergies Seasonal Allergies: No Surgeries History of Surgeries: Yes (left knee surgery, WISDOM TEETH, D&C) Surgeries: Section, Gallbladder, Orthopedic Respiratory History of Respiratory Disorde: No Cardiovascular History of Cardiac Disorders: No Neurological History of Neurological Disord: Yes Neurological Disorders: Meningitis Reproductive System Hx Reproductive Disorders: Yes Sexually Transmitted Disease: Yes HIV/AIDS: No Female Reproductive Disorders: Denies, 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: 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 Genitourinary Genitourinary Disorders: UTI-Chronic Gastrointestinal History of Gastrointestinal Di: Yes Gastrointestinal Disorders: Gastroesophageal Reflux, Hiatal Hernia Musculoskeletal History of Musculoskeletal Dis: No Endocrine History of Endocrine Disorders: No Cancer History of Cancer: No Psychosocial History of Psychiatric Problem: Yes Behavioral Health Disorders: Anxiety, PTSD, Depression Suicide Risk Score: 0 Integumentary History of Skin or Integumenta: No Blood Transfusions History of Blood Disorders: No Adverse Reaction to a Blood Tr: No Reviewed Nursing Assessment Reviewed/Agree w Nursing PMH: Yes Family Medical History Significant Family History: No Pertinent Family Hx Physical Exam Vital Signs Vital Sign - Last 12Hours 04/20/17 11:49 Temp 98.3 Pulse 55 Resp 18 B/P (MAP) 116/107 Pulse Ox 99 Capillary Refill : Less Than 3 Seconds General Appearance: WD/WN, no apparent distress HEENT: PERRL/EOMI, pharynx normal Neck: supple, normal inspection Cardiovascular: normal peripheral pulses, regular rate, rhythm, no edema, no murmur Respiratory: lungs clear, normal breath sounds, no respiratory distress, no accessory muscle use Gastrointestinal: normal bowel sounds, soft, no organomegaly, No distended, No guarding, No rebound, tenderness (mild epigastric tenderness), No mass Back: normal inspection, no CVA tenderness Extremities: normal inspection, no pedal edema, normal capillary refill Neurologic/Psychiatric: alert, normal mood/affect, oriented x 3 Skin: normal color, warm/dry Progress/Results/Core Measures Results/Orders Lab Results My Orders Orders - RENATA CERDA Iv Push Production Machine Operator Ed (04/20/17 ) Medications Given in ED Vital Signs/I&O Blood Pressure Mean: 110 Departure Communication (Admissions) Progress Notes FHT's 120 Laboratory findings discussed with the patient. Patient reports feeling much better after being given Pepcid, Zofran, and 1 L normal saline. Denies nausea or heartburn at this time. Plan for discharge to home. Patient follow-up with her dope and fabric worker for recheck. All return precautions were discussed with the patient as described in the discharge instructions of this report. Patient voices understanding and agrees with the treatment plan. Patient case discussed with Dr. Dilan Fan, he agrees with the plan of care. Impression Impression: Primary Impression: Gastritis Qualified Codes: K29.00 - Acute gastritis without bleeding Additional Impressions: Nausea & vomiting Qualified Codes: R11.2 - Nausea with vomiting, unspecified Qualified Codes: Z3A.10 - 10 weeks gestation of Disposition: 01 HOME, SELF-CARE Condition: Improved Departure-Patient Inst. Decision time for Depature: 13:56 Referrals: [facility] (PCP/Family) Primary Care Physician Patient Instructions: Gastritis (DC), Nausea and Vomiting of (DC) Add. Discharge Instructions: All discharge instructions reviewed with patient and/or family. Voiced understanding. Medications as instructed. Drink plenty of fluids. Clear liquid diet until symptoms improve, then increase diet slowly to a low-fat, bland diet. Tylenol Extra Strength [id number] as directed for pain if needed. No spicy foods, fatty foods, carbonated beverages, caffeinated beverages, smoking, secondhand smoke, alcohol. Do not eat within 2 hours of lying down. Follow-up with your dope and fabric worker for recheck as an outpatient, call for appointment time. Return to the emergency department for worsened pain , vomiting, vomiting blood, decreased urination, blood in the stools, black stools, vaginal bleeding with greater than 2 pads per hour for greater than 2 hours, vaginal discharge, or any other concerns. Scripts Famotidine (Pepcid) 20 Mg Tablet 20 MG PO BID Y for HEARTBURN, #20 TAB 0 Refills Prov: RENATA CERDA 04/20/17 Doxylamine/Pyridoxine HCl (Francisco Crespo 10-10 mg Tablet) 1 Each Tablet. 2 EACH PO HS, #14 TAB 0 Refills Prov: RENATA CERDA 04/20/17 RENATA CERDA Apr 20, 2017 12:30
[2017-04-20] MEDS ORDERED: FAMOTIDINE 20MG/2ML IV (PEPCID) IV STA (12:41)
[2017-04-20 12:52] LABS: BASOPHILS % (AUTO) 0 % (0-10); EOSINOPHILS % (AUTO) 1 % (0-10); LYMPHOCYTES % (AUTO) 16 % (12-44); MEAN CORPUSCULAR HEMOGLOBIN 27 PG (25-34); MEAN CORPUSCULAR HGB CONC 33 G/DL (32-36); MEAN CORPUSCULAR VOLUME 80 FL (80-99); MEAN PLATELET VOLUME 8.5 FL (7.4-10.4); MONOCYTES # (AUTO) 0.5 X 10^3 (0.0-1.0); MONOCYTES % (AUTO) 7 % (0-12); NEUTROPHILS # (AUTO) 4.7 X 10^3 (1.8-7.8); NEUTROPHILS % (AUTO) 76 % (42-75); PLATELET COUNT 264 10^3/uL (130-400); RED BLOOD COUNT 4.08 10^6/uL (4.35-5.85); RED CELL DISTRIBUTION WIDTH 15.6 % (10.0-14.5); WHITE BLOOD COUNT 6.2 10^3/uL (4.3-11.0)
[2017-04-20 13:10] LABS: ALANINE AMINOTRANSFERASE 10 U/L (0-55); ALBUMIN 3.4 GM/DL (3.2-4.5); ANION GAP 9 MMOL/L (5-14); ASPARTATE AMINO TRANSFERASE 12 U/L (5-34); BILIRUBIN,TOTAL 0.4 MG/DL (0.1-1.0); BLOOD UREA NITROGEN 6 MG/DL (7-18); BUN/CREATININE RATIO 8; CALCIUM 8.5 MG/DL (8.5-10.1); CARBON DIOXIDE 21 MMOL/L (21-32); CHLORIDE 108 MMOL/L (98-107); CREATININE SERUM 0.71 MG/DL (0.60-1.30); GFR ESTIMATED > 60; GLUCOSE 109 MG/DL (70-105); LIPASE 16 U/L (8-78); POTASSIUM 3.4 MMOL/L (3.6-5.0); SODIUM 138 MMOL/L (135-145); hs C REACTIVE PROTEIN 1.34 MG/DL (0.00-0.50)
[2017-04-20 13:37] LABS: BILIRUBIN,URINE NEGATIVE (NEGATIVE); KETONES,URINE NEGATIVE (NEGATIVE); LEUKOCYTE ESTERASE ,URINE 1+ (NEGATIVE); NITRITE,URINE NEGATIVE (NEGATIVE); PH,URINE 6 (5-9); PROTEIN,URINE 1+ (NEGATIVE); UROBILINOGEN,URINE 1 MG/DL (NORMAL)
[2017-04-20 13:51] LABS: WBC,URINE 0-2 /HPF
[2017-04-20 13:52] LABS: SQUAMOUS EPITHELIAL CELL,UR 25-50 /HPF
[2017-04-20] MEDS ORDERED: DOXY1TAB3 PO (14:00)
[2017-04-20] MEDS ORDERED: FAMO-119 PO (14:00)
[2017-04-20 14:46] VITALS: BP 121/68
== END 2017-04-20 14:46 | disposition home or self-care (01) ==
LOC: EDUNIT# 11:26 → ER 11:31
DX: O99.611 Diseases of the digestive system complicating pregnancy, first trimester (principal); K29.70 Gastritis, unspecified, without bleeding; K21.9 Gastro-esophageal reflux disease without esophagitis; O99.341 Other mental disorders complicating pregnancy, first trimester; F41.9 Anxiety disorder, unspecified; F32.9 Major depressive disorder, single episode, unspecified; F43.10 Post-traumatic stress disorder, unspecified; Z3A.10 10 weeks gestation of pregnancy; Z77.22 Contact with and (suspected) exposure to environmental tobacco smoke (acute) (chronic); Z87.19 Personal history of other diseases of the digestive system; Z87.59 Personal history of other complications of pregnancy, childbirth and the puerperium; Z87.440 Personal history of urinary (tract) infections
CPT/HCPCS: 36415; 80053; 81000; 83690; 85025; 86141; 96361; 96374; 96375

== ENCOUNTER 2017-04-23 13:22 | Emergency (ER) | payer MEDICAID ==
[~2017-04-23] VITALS: Ht 177.8 cm; Wt 90.7 kg
[~2017-04-23 13:22] MED LIST changes: +DOXY1TAB3 PO; +FAMO-119 PO; +NAPR500T3 PO; -NAPR500T4 PO
[2017-04-23] MEDS ORDERED: DIPH25CA79 PO (13:40)
[2017-04-23] MEDS ORDERED: AMOX500C2 PO (13:40)
--- NOTE | 2017-04-23 13:41 | ED Cough/URI ---
General Chief Complaint: Cough/Cold/Flu Symptoms Stated Complaint: HEADACHE/LT EAR ACHE/EYE PRESSURE/RUNNY NOSE Source: patient Exam Limitations: no limitations History of Present Illness Time seen by provider: 13:38 Initial Comments To ER with rhinorrhea, pressure beneath her eyes, headache, left earache. Symptoms present for 3 days. No fevers but she has had chills. No cough. She is 11 weeks . Timing/Duration: other Severity/Quality: no cough Associated Symptoms: earache, fever/chills, nasal drainage Allergies and Home Medications Allergies Coded Allergies: Sulfa (Sulfonamide Antibiotics) (Unverified Allergy, Unknown, 08/18/14) Home Medications Albuterol Sulfate 6.7 Gm Hfa.aer.ad, 2 PUFF IH Q6H PRN for SHORTNESS OF BREATH, #1 Ref 0 Prescribed by: RENATA CERDA on 12/29/162003 Buspirone HCl 15 Mg Tablet, #30 (Reported) Doxylamine/Pyridoxine HCl 1 Each Tablet.dr, 2 EACH PO HS, #14 Ref 0 Prescribed by: RENATA CERDA on 04/20/17 1400 Famotidine 20 Mg Tablet, 20 MG PO BID PRN for HEARTBURN, #20 Ref 0 Prescribed by: RENATA CERDA on 04/20/17 1400 [Buspar] , (Reported) [Med For Anxiety] , (Reported) Constitutional: see HPI EENTM: see HPI, nose congestion Respiratory: no symptoms reported Cardiovascular: no symptoms reported Genitourinary: no symptoms reported Musculoskeletal: no symptoms reported Skin: no symptoms reported Psychiatric/Neurological: No Symptoms Reported Past Ydytwww-Yjcwoe-Lnputo Hx Patient Social History Type Used: Cigarettes 2nd Hand Smoke Exposure: Yes Recent Foreign Travel: No Contact w/Someone Who Travel: No Recent Hopitalizations: No Immunizations Up To Date Tetanus Booster (TDap): Unknown Date of Influenza Vaccine: Jul 20, 2016 Seasonal Allergies Seasonal Allergies: No Surgeries History of Surgeries: Yes (left knee surgery, WISDOM TEETH, D&C) Surgeries: Section, Gallbladder, Orthopedic Respiratory History of Respiratory Disorde: No Cardiovascular History of Cardiac Disorders: No Neurological History of Neurological Disord: Yes Neurological Disorders: Meningitis Reproductive System Hx Reproductive Disorders: Yes Sexually Transmitted Disease: Yes HIV/AIDS: No Female Reproductive Disorders: Denies, 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 Genitourinary Genitourinary Disorders: UTI-Chronic Gastrointestinal History of Gastrointestinal Di: Yes Gastrointestinal Disorders: Gastroesophageal Reflux, Hiatal Hernia Musculoskeletal History of Musculoskeletal Dis: No Endocrine History of Endocrine Disorders: No Cancer History of Cancer: No Psychosocial History of Psychiatric Problem: Yes Behavioral Health Disorders: Anxiety, PTSD, Depression Integumentary History of Skin or Integumenta: No Blood Transfusions History of Blood Disorders: No Adverse Reaction to a Blood Tr: No Family Medical History Significant Family History: No Pertinent Family Hx Physical Exam Vital Signs Capillary Refill : General Appearance: WD/WN, no apparent distress Eyes: Bilateral Eye Normal Inspection, Bilateral Eye PERRL, Bilateral Eye EOMI HEENT: PERRL/EOMI, normal ENT inspection, TMs normal, pharynx normal Neck: non-tender, full range of motion Respiratory: normal breath sounds, no respiratory distress Cardiovascular: regular rate, rhythm, no murmur Gastrointestinal: normal bowel sounds, non tender, soft Neurologic/Psychiatric: alert, normal mood/affect, oriented x 3 Skin: normal color, warm/dry Departure Impression Impression: Primary Impression: Sinusitis Disposition: 01 HOME, SELF-CARE Condition: Stable Departure-Patient Inst. Decision time for Depature: 13:39 Referrals: [facility] (PCP/Family) Primary Care Physician Patient Instructions: Cough, Runny Nose, and the Common Cold (DC) Add. Discharge Instructions: 1. Antibiotics as directed 2. Antihistamines as directed 3. All discharge instructions reviewed with patient and/or family. Voiced understanding. Scripts Diphenhydramine HCl (Benadryl) 25 Mg Capsule 25 MG PO TID Y for RUNNY NOSE, #30 CAP Prov: ARIK LEYVA HIGH SPEED OPERATOR 04/23/17 Amoxicillin (Amoxicillin) 500 Mg Capsule 500 MG PO TID, #21 CAP Prov: ARIK LEYVA HIGH SPEED OPERATOR 04/23/17 ARIK LEYVA HIGH SPEED OPERATOR Apr 23, 2017 13:41
[2017-04-23 13:53] VITALS: BP 100/58
== END 2017-04-23 13:53 | disposition home or self-care (01) ==
LOC: EDUNIT# 13:22 → ER 13:25
DX: J32.9 Chronic sinusitis, unspecified (principal); K21.9 Gastro-esophageal reflux disease without esophagitis; F41.9 Anxiety disorder, unspecified; F32.9 Major depressive disorder, single episode, unspecified; F43.10 Post-traumatic stress disorder, unspecified; Z87.19 Personal history of other diseases of the digestive system; Z77.22 Contact with and (suspected) exposure to environmental tobacco smoke (acute) (chronic); Z87.59 Personal history of other complications of pregnancy, childbirth and the puerperium
CPT/HCPCS: 99282

== ENCOUNTER 2017-05-26 15:12 | Emergency (ER) | payer MEDICAID ==
[~2017-05-26] VITALS: Ht 177.8 cm; Wt 90.7 kg
[~2017-05-26 15:12] MED LIST changes: +DIPH25CA79 PO
--- OUTSIDE RECORDS SUMMARY | 2017-05-26 15:21 | XMS REPORT ---
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 03920774 Problem Encounter for dental examination Z01.20 Active 078014876 Problem Reflux esophagitis K21.0 Active 400988611 Problem Dyspepsia R10.13 Active 881650539 Problem Dysthymia F34.1 Active 91081828 ALLERGIES Substance Reaction Event Type Date Status Sulfamethoxazole-Trimethoprim nausea, headache, fingers tingling Drug Allergy Oct, Active SOCIAL HISTORY Never Assessed PLAN OF CARE Activity Details Follow Up prn Reason: VITAL SIGNS Height 71 in 2016-10-19 Weight 198.0 lbs 2016-10-19 Temperature 98.0 degrees Fahrenheit 2016-10-19 Heart Rate 80 bpm 2016-10-19 Respiratory Rate 18 2016-10-19 BMI 27.61 kg/m2 2016-10-19 Blood pressure systolic 120 mmHg 2016-10-19 Blood pressure diastolic 78 mmHg 2016-10-19 MEDICATIONS Medication Instructions Dosage Frequency Start Date End Date Duration Status Venlafaxine HCl ER 37.5 MG Orally Once a day 1 capsule with food 24h May Active BuSpar 15 MG Orally Twice a day .5 tablet 12h Jul, Active Omeprazole 40 mg Orally Once a day, NEEDS APPT BEFORE ANY FURTHER REFILLS 1 capsule May, Active Venlafaxine HCl 50 mg Orally Twice a day 1 tablet with food 12h Jul, Active RESULTS No Results PROCEDURES No Known procedures IMMUNIZATIONS No Known Immunizations MEDICAL (GENERAL) HISTORY Type Description Date Medical History depression/PTSD Medical History anxiety Medical History Pneumonia/Bronchitis Medical History Thyroid Medical History Low Iron Surgical History dilatation and curettage 2002 Surgical History cyst removal from left knee 1989 Surgical History section 2012 Surgical History wisdom teeth extracted 2000 Surgical History cholecystectomy 2016 Hospitalization History meningitis 2005 Hospitalization History surgeries, childbirth Hospitalization History child
--- OUTSIDE RECORDS SUMMARY | 2017-05-26 15:21 | XMS REPORT ---
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 06414285 Problem Encounter for dental examination Z01.20 Active 417752671 Problem Reflux esophagitis K21.0 Active 854313469 Problem Dyspepsia R10.13 Active 065999702 Problem Dysthymia F34.1 Active 33144603 ALLERGIES Substance Reaction Event Type Date Status Sulfamethoxazole-Trimethoprim nausea, headache, fingers tingling Drug Allergy Oct, Active SOCIAL HISTORY Never Assessed PLAN OF CARE Activity Details Follow Up 4 Weeks Reason:anxiety VITAL SIGNS Height 71 in 2016-10-31 Weight 199.2 lbs 2016-10-31 Temperature 97.8 degrees Fahrenheit 2016-10-31 Heart Rate 87 bpm 2016-10-31 Respiratory Rate 16 2016-10-31 BMI 27.78 kg/m2 2016-10-31 Blood pressure systolic 98 mmHg 2016-10-31 Blood pressure diastolic 62 mmHg 2016-10-31 MEDICATIONS Medication Instructions Dosage Frequency Start Date End Date Duration Status Bactroban 2 % Externally Three times a day 1 application to affected area 8h Oct, Active Omeprazole 40 mg Orally Once a day, NEEDS APPT BEFORE ANY FURTHER REFILLS 1 capsule May, Active BuSpar 15 MG Orally Once a day 1 tablet 24h Jul, Active Venlafaxine HCl ER 75 MG Orally Once a day 1 capsule with food 24h Oct, Active RESULTS Name Result Date Reference Range MONO TEST (IN HOUSE) 2016-10-31 RESULTS negative Control + Lot # [id number] Exp date 05/19/17 PROCEDURES Procedure Date Ordered Result Body Site HETEROPHILE ANTIBODIES October 31, 2016 IMMUNIZATIONS No Known Immunizations MEDICAL (GENERAL) HISTORY [...]
--- NOTE | 2017-05-26 16:44 | ED GU-Female ---
General Chief Complaint: -Female Stated Complaint: ABD CRAMPING Nursing Triage Note: AMB TO ROOM REPORTS IS 16 WEEKS PREG. FOR LAST 4 DAYS HAS BEEN CRAMPING AND HAS NOT FELT BABY MOVE NO VAG BLEEDING. HER OB DR IS IN [place] HAS NOT CALLED THEM Nursing Sepsis Screen: No Definite Risk Source: patient Exam Limitations: no limitations History of Present Illness Time seen by provider: 16:24 Initial Comments 31-year-old female patient presents to the emergency department complains of not feeling the baby move for approximately 4 days. Also complains of lower abdominal cramping. Denies any vaginal bleeding, vaginal discharge, dysuria, frequency, hematuria, nausea, vomiting, diarrhea, or fevers. Patient sees Dr. More in [place], [place]. Patient is approximately 16 weeks . Timing/Duration: other (four-day onset) Severity/Quality: cramping Location: suprapubic Radiation: none Activities at Onset: none Prior Genitourinary Problems: similar symptoms Sexual [place] History: less than 2 months ago, single partner Allergies and Home Medications Allergies Coded Allergies: Sulfa (Sulfonamide Antibiotics) (Unverified Allergy, Unknown, 08/18/14) Home Medications Albuterol Sulfate 6.7 Gm Hfa.aer.ad, 2 PUFF IH Q6H PRN for SHORTNESS OF BREATH, #1 Ref 0 Prescribed by: RENATA CERDA on 12/29/162003 Amoxicillin 500 Mg Capsule, 500 MG PO TID, #21 Prescribed by: ARIK LEYVA on 04/23/17 1340 Buspirone HCl 15 Mg Tablet, #30 (Reported) Diphenhydramine HCl 25 Mg Capsule, 25 MG PO TID PRN for RUNNY NOSE, #30 Prescribed by: ARIK LEYVA on 04/23/17 1340 Doxylamine/Pyridoxine HCl 1 Each Tablet.dr, 2 EACH PO HS, #14 Ref 0 Prescribed by: RENATA CERDA on 04/20/17 1400 Famotidine 20 Mg Tablet, 20 MG PO BID PRN for HEARTBURN, #20 Ref 0 Prescribed by: RENATA CERDA on 04/20/17 1400 [Buspar] , (Reported) [Med For Anxiety] , (Reported) Constitutional: No chills, No dizziness, No fever, No malaise, No weakness EENTM: no symptoms reported Respiratory: No cough, No phlegm, No short of breath Cardiovascular: No chest pain, No edema, No palpitations, No syncope Gastrointestinal: see HPI, abdominal pain (suprapubic abdominal cramping), No constipation, No diarrhea, No loss of appetite, No nausea, No vomiting Genitourinary: see HPI, denies burning, denies discharge, denies dysuria, denies frequency, denies flank pain, denies hematuria Musculoskeletal: No back pain Skin: no symptoms reported Psychiatric/Neurological: No Symptoms Reported All Other Systemes Reviewed Negative Unless Noted: Yes (Negative excepted noted.) Past Zvxvtiq-Ecvwfh-Lnmjml Hx Patient Social History Alcohol Use: Denies Use Recreational Drug Use: No Type Used: Cigarettes 2nd Hand Smoke Exposure: Yes Recent Foreign Travel: No Contact w/Someone Who Travel: No Recent Infectious Disease Expo: No Recent Hopitalizations: No Immunizations Up To Date Tetanus Booster (TDap): Unknown Date of Influenza Vaccine: Jul 20, 2016 Seasonal Allergies Seasonal Allergies: No Surgeries History of Surgeries: Yes (left knee surgery, WISDOM TEETH, D&C) Surgeries: Section, Gallbladder, Orthopedic Respiratory History of Respiratory Disorde: No Cardiovascular History of Cardiac Disorders: No Neurological History of Neurological Disord: Yes Neurological Disorders: Meningitis Reproductive System : Yes Hx : 9 Hx Para: 5 ((4 living, 1 SIDS)) Hx Total # of Abortions (Spona: 2 Hx Reproductive Disorders: Yes Sexually Transmitted Disease: Yes HIV/AIDS: No Female Reproductive Disorders: Denies, 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 Genitourinary History of Genitourinary Disor: Yes Genitourinary Disorders: UTI-Chronic Gastrointestinal History of Gastrointestinal Di: Yes Gastrointestinal Disorders: Gastroesophageal Reflux, Hiatal Hernia Musculoskeletal History of Musculoskeletal Dis: No Endocrine History of Endocrine Disorders: No HEENT History of HEENT Disorders: No Cancer History of Cancer: No Psychosocial History of Psychiatric Problem: Yes Behavioral Health Disorders: Anxiety, PTSD, Depression Integumentary History of Skin or Integumenta: No Blood Transfusions History of Blood Disorders: No Adverse Reaction to a Blood Tr: No Reviewed Nursing Assessment Reviewed/Agree w Nursing PMH: Yes Family Medical History Significant Family History: No Pertinent Family Hx Physical Exam Vital Signs Vital Sign - Last 12Hours 05/26/17 15:55 Temp 96.9 Pulse 69 Resp 18 B/P (MAP) 108/65 Pulse Ox 100 O2 Delivery Room Air Capillary Refill : Less Than 3 Seconds General Appearance: WD/WN, no apparent distress HEENT: PERRL/EOMI, pharynx normal Neck: supple, normal inspection Cardiovascular: normal peripheral pulses, regular rate, rhythm, no edema, no murmur Respiratory: lungs clear, normal breath sounds, no respiratory distress, no accessory muscle use Gastrointestinal: normal bowel sounds, soft, no organomegaly, No distended, No guarding, No rebound, tenderness (mild suprapubic tenderness), other (uterine fundal height consistent with a 16 wk uterus) Back: normal inspection, no CVA tenderness Extremities: no pedal edema, no calf tenderness, normal capillary refill Neurologic/Psychiatric: alert, normal mood/affect, oriented x 3 Skin: normal color, warm/dry Progress/Results/Core Measures Results/Orders Lab Results Laboratory Tests Test 05/26/17 16:40 Range/Units Urine Color YELLOW Urine Clarity SLIGHTLY CLOUDY Urine pH 5 5-9 Urine Specific Morton 1.030 H 1.016-1.022 Urine Protein 1+ H NEGATIVE Urine Glucose (UA) NEGATIVE NEGATIVE Urine Ketones NEGATIVE NEGATIVE Urine Nitrite NEGATIVE NEGATIVE Urine Bilirubin NEGATIVE NEGATIVE Urine Urobilinogen NORMAL NORMAL MG/DL Urine Leukocyte Esterase NEGATIVE NEGATIVE Urine RBC (Auto) 1+ H NEGATIVE Urine RBC NONE /HPF Urine WBC NONE /HPF Urine Squamous Epithelial Cells 5-10 /HPF Urine Crystals NONE /LPF Urine Bacteria NEGATIVE /HPF Urine Casts NONE /LPF Urine Mucus MODERATE H /LPF Urine Culture Indicated NO My Orders Orders - RENATA CERDA Heart Tones (05/26/17 16:15) Ua Culture If Indicated (05/26/17 16:15) Vital Signs/I&O Vital Sign - Last 12Hours 05/26/17 05/26/17 15:55 17:16 Temp 96.9 96.9 Pulse 69 69 Resp 18 18 B/P (MAP) 108/65 Pulse Ox 100 100 O2 Delivery Room Air Blood Pressure Mean: 79 Departure Communication (Admissions) Progress Notes 1635 FHT's 144-150 Laboratory findings discussed with the patient. Patient denies current pain. Continues to deny vaginal bleeding or vaginal discharge. Plan for discharge to home with follow-up as an outpatient early this week for recheck by Dr. More. Patient call Sunday morning for appointment time. I have advised the patient if symptoms worsen or if patient has vaginal bleeding, vaginal discharge, fever, difficulty with urination, or any other concerns she is to return immediately to the emergency department. Patient verbalizes understanding and agrees with the treatment plan. Patient case discussed with Dr. Horn, he agrees with the plan of care. Impression Impression: Primary Impression: 16 weeks gestation of Disposition: HOME, SELF-CARE Condition: Improved Departure-Patient Inst. Decision time for Depature: 17:07 Referrals: TAO PHILLIP (PCP) Primary Care Physician [facility] (Family) Primary Care Physician Patient Instructions: Round Ligament Pain Add. Discharge Instructions: All discharge instructions reviewed with patient and/or family. Voiced understanding. Tylenol extra strength [id number] as directed for pain. Drink plenty of fluids. Follow-up with Dr. More this week for recheck, call first thing Sunday for appointment time. Return to the emergency department for worsened cramping, fever, difficulty with urination, inability to urinate, vaginal bleeding with greater than 2 pads per hour for greater than 2 hours, vaginal discharge, or any other concerns. RENATA CERDA May 26, 2017 16:44
[2017-05-26 16:45] LABS: BILIRUBIN,URINE NEGATIVE (NEGATIVE); KETONES,URINE NEGATIVE (NEGATIVE); LEUKOCYTE ESTERASE ,URINE NEGATIVE (NEGATIVE); NITRITE,URINE NEGATIVE (NEGATIVE); PH,URINE 5 (5-9); PROTEIN,URINE 1+ (NEGATIVE); UROBILINOGEN,URINE NORMAL (NORMAL)
[2017-05-26 17:16] VITALS: BP 108/65
== END 2017-05-26 17:16 | disposition home or self-care (01) ==
LOC: EDUNIT# 15:12 → ER 15:14
DX: O26.892 Other specified pregnancy related conditions, second trimester (principal); R10.30 Lower abdominal pain, unspecified; O99.342 Other mental disorders complicating pregnancy, second trimester; F41.9 Anxiety disorder, unspecified; F43.10 Post-traumatic stress disorder, unspecified; F32.9 Major depressive disorder, single episode, unspecified; O99.612 Diseases of the digestive system complicating pregnancy, second trimester; K21.9 Gastro-esophageal reflux disease without esophagitis; Z3A.16 16 weeks gestation of pregnancy; Z87.59 Personal history of other complications of pregnancy, childbirth and the puerperium; Z87.19 Personal history of other diseases of the digestive system; Z87.440 Personal history of urinary (tract) infections
CPT/HCPCS: 81000; 99283

== ENCOUNTER 2017-07-02 18:54 | Outpatient (CLI) | payer MEDICAID ==
[~2017-07-02] VITALS: Ht 177.8 cm; Wt 85.7 kg
[2017-07-02 19:52] VITALS: BP 100/59
[2017-07-02] MEDS ORDERED: PREN-142 PO (20:04)
[2017-07-02 20:21] LABS: BILIRUBIN,URINE NEGATIVE (NEGATIVE); KETONES,URINE NEGATIVE (NEGATIVE); LEUKOCYTE ESTERASE ,URINE NEGATIVE (NEGATIVE); NITRITE,URINE NEGATIVE (NEGATIVE); PH,URINE 7 (5-9); PROTEIN,URINE NEGATIVE (NEGATIVE); UROBILINOGEN,URINE NORMAL (NORMAL)
--- NOTE | 2017-07-03 11:43 | Physician Query-Final Dx ---
PO NAVARRO 07/03/17 1143: Clinic Account Progress/Dx Physician Query: Please give diagnosis Date of Service Jul 02, 2017 at 18:54 TAO CARRERO DO 07/03/17 1227: Clinic Account Progress/Dx DIAGNOSIS: Diagnosis 21 week IUP No local physician LLQ pain PO NAVARRO Jul 03, 2017 11:43 TAO CARRERO DO Jul 03, 2017 12:27
== END 2017-07-02 21:00 | disposition home or self-care (01) ==
LOC: WSo 18:54 → LDRP 18:54 → WSo 21:00
PROVIDERS: ATTEND Obstetrics & Gynecology
DX: R10.32 Left lower quadrant pain (principal); Z3A.21 21 weeks gestation of pregnancy
CPT/HCPCS: 80306; 81000; 99213

== ENCOUNTER 2017-08-10 18:48 | Outpatient (CLI) | payer MEDICAID ==
[~2017-08-10] VITALS: Ht 177.8 cm; Wt 86.6 kg
[~2017-08-10 18:48] MED LIST changes: +ACHD5005 PO; -HYDR-3812 PO; -NAPR500T3 PO; +NAPR500T4 PO; +PREN-142 PO
[2017-08-10 19:30] VITALS: BP 98/54
[2017-08-10 19:59] LABS: BILIRUBIN,URINE NEGATIVE (NEGATIVE); KETONES,URINE NEGATIVE (NEGATIVE); LEUKOCYTE ESTERASE ,URINE NEGATIVE (NEGATIVE); NITRITE,URINE NEGATIVE (NEGATIVE); PH,URINE 6 (5-9); PROTEIN,URINE NEGATIVE (NEGATIVE); UROBILINOGEN,URINE NORMAL (NORMAL)
[2017-08-10 20:08] LABS: CALCIUM OXALATE CRYSTALS,UR FEW /LPF; SQUAMOUS EPITHELIAL CELL,UR 0-2 /HPF
[2017-08-10] MEDS ORDERED: LACTATED RINGERS 1,000 ML IV ONE (20:15)
--- NOTE | 2017-08-14 14:37 | Physician Query-Final Dx ---
BRYAN HERNANDES 08/14/17 1437: Clinic Account Progress/Dx Physician Query: Please give diagnosis Date of Service Aug 10, 2017 at 18:48 MELVIN CHATMAN DO 08/16/17 0635: Clinic Account Progress/Dx DIAGNOSIS: Diagnosis 26 week GA Decrease movement - reassuring FHT w/ movement on evaluation Pre-term contractions, not in active labor - resolved w/ IVF BRYAN HERNANDES Aug 14, 2017 14:37 MELVIN CHATMAN DO Aug 16, 2017 06:35
== END 2017-08-10 22:10 ==
LOC: LDRP 18:48 → WSo 18:48
PROVIDERS: ATTEND Family Medicine
DX: O36.8120 Decreased fetal movements, second trimester, not applicable or unspecified (principal); O60.02 Preterm labor without delivery, second trimester; Z3A.26 26 weeks gestation of pregnancy
CPT/HCPCS: 81000; 96360; 96361; 99213

== ENCOUNTER 2017-08-30 21:04 | Outpatient (CLI) | payer MEDICAID ==
[~2017-08-30] VITALS: Ht 177.8 cm; Wt 87.5 kg
[2017-08-30 21:40] VITALS: BP 108/58
[2017-08-30] MEDS ORDERED: FAMO-119 PO (22:42)
[2017-08-30] MEDS ORDERED: CITA20TA12 PO (22:42)
--- NOTE | 2017-08-31 12:36 | Physician Query-Final Dx ---
BRYAN HERNANDES 08/31/17 1236: Clinic Account Progress/Dx Physician Query: Please give diagnosis Date of Service Aug 30, 2017 at 21:04 MELVIN CHATMAN DO 09/14/17 1811: Clinic Account Progress/Dx DIAGNOSIS: Diagnosis 1. Vomiting 2. 30 week GA BRYAN HERNANDES Aug 31, 2017 12:36 MELVIN CHATMAN DO Sep 14, 2017 18:11
== END 2017-08-30 22:55 | disposition home or self-care (01) ==
LOC: WSo 21:04 → LDRP 21:04 → WSo 22:55
PROVIDERS: ATTEND Family Medicine
DX: O21.2 Late vomiting of pregnancy (principal); Z3A.30 30 weeks gestation of pregnancy
CPT/HCPCS: 99213

== ENCOUNTER 2017-09-04 21:31 | Outpatient (CLI) | payer MEDICAID ==
[~2017-09-04] VITALS: Ht 177.8 cm; Wt 88.5 kg
[~2017-09-04 21:31] MED LIST changes: +CITA20TA12 PO
[2017-09-04 21:50] VITALS: BP 103/57
--- NOTE | 2017-09-05 10:59 | Physician Query-Final Dx ---
BRYAN HERNANDES 09/05/17 1059: Clinic Account Progress/Dx Physician Query: Please give diagnosis Date of Service Sep 04, 2017 at 21:31 CHANNING TEAGUE MD 09/11/17 0831: Clinic Account Progress/Dx DIAGNOSIS: Diagnosis Contractions in BRYAN HERNANDES Sep 05, 2017 10:59 CHANNING TEAGUE MD Sep 11, 2017 08:31
== END 2017-09-04 22:30 | disposition home or self-care (01) ==
LOC: LDRP 21:31 → WSo 21:31
PROVIDERS: ATTEND Family Medicine
DX: O47.03 False labor before 37 completed weeks of gestation, third trimester (principal); Z3A.30 30 weeks gestation of pregnancy
CPT/HCPCS: 99213

== ENCOUNTER 2017-09-24 19:47 | Emergency (ER) | payer MEDICAID ==
[~2017-09-24] VITALS: Ht 177.8 cm; Wt 89.8 kg
--- OUTSIDE RECORDS SUMMARY | 2017-09-24 19:54 | XMS REPORT ---
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
--- NOTE | 2017-09-24 21:50 | ED Cough/URI ---
General Chief Complaint: Cough/Cold/Flu Symptoms Stated Complaint: SORE THROAT,HEADACHE,HEAVY UNDEREYES, 34 WKS PREG Nursing Triage Note: c/o sore throat/eye pressure/malaise/ELAINE. Onset yesterday. Denies fever. Received influenza vaccine. Has appointment with tomorrow. Hx of 34 weeks . Source: patient Exam Limitations: no limitations History of Present Illness Date Seen by Provider: Sep 24, 2017 Time Seen by Provider: 21:50 Initial Comments 32-year-old female patient presents to the emergency Department with reports of sore throat, cough, headache, malaise, high pressure, sneezing, rhinorrhea beginning yesterday. Denies fever. Patient states she is scheduled to see Dr. Fuller (her fire protection inspector) tomorrow morning. Patient is 34 weeks . Patient also reports her son was diagnosed with influenza B 3 weeks ago and her daughter was diagnosed with influenza A one week ago. Denies abdominal pain, nausea, vomiting, vaginal bleeding, vaginal discharge, or contractions. Timing/Duration: yesterday Severity/Quality: productive cough (clear productive cough) Prior Episodes/Possible Cause: no prior episodes Modifying Factors: Worse With Coughing Allergies and Home Medications Allergies Coded Allergies: Sulfa (Sulfonamide Antibiotics) (Unverified Allergy, Unknown, 08/18/14) Home Medications Citalopram Hydrobromide 20 Mg Tablet, 20 MG PO DAILY, (Reported) Famotidine 20 Mg Tablet, 20 MG PO DAILY, (Reported) Vit No.124/Iron/FA 1 Each Tablet, 1 EACH PO DAILY, (Reported) Constitutional: No chills, No diaphoresis, No dizziness, No fever, malaise, No weakness EENTM: see HPI, ear pain, nose congestion, throat pain, No ear discharge, No hoarseness Respiratory: see HPI, cough, No dyspnea on exertion, phlegm, No short of breath , No wheezing Cardiovascular: No chest pain, No edema, No palpitations, No syncope Gastrointestinal: No abdominal pain, No constipation, No diarrhea, No loss of appetite, No melena, No nausea, No vomiting Genitourinary: No decreased output, No discharge, No dysuria, No frequency, No hematuria, No pain : Yes Musculoskeletal: no symptoms reported Skin: no symptoms reported Psychiatric/Neurological: Headache, Denies Numbness, Denies Paresthesia, Denies Seizure, Denies Tingling, Denies Weakness All Other Systems Reviewed Negative Unless Noted: Yes (Negative excepted noted.) Past Qapdcfy-Gmeddn-Niimea Hx Patient Social History Alcohol Use: Denies Use Recreational Drug Use: No Smoking Status: Former Smoker Type Used: Cigarettes Former Smoker, Quit: December 18, 2016 2nd Hand Smoke Exposure: Yes Recent Foreign Travel: No Contact w/Someone Who Travel: No Recent Infectious Disease Expo: No Recent Hopitalizations: No Immunizations Up To Date Tetanus Booster (TDap): Unknown Date of Influenza Vaccine: May 28, 2017 Seasonal Allergies Seasonal Allergies: No Surgeries History of Surgeries: Yes (left knee surgery, WISDOM TEETH, D&C) Surgeries: Section, Gallbladder, Orthopedic Respiratory History of Respiratory Disorde: No Cardiovascular History of Cardiac Disorders: No Neurological History of Neurological Disord: Yes Neurological Disorders: Meningitis Reproductive System Hx Reproductive Disorders: Yes Sexually Transmitted Disease: Yes HIV/AIDS: No Female Reproductive Disorders: Denies, 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 Genitourinary History of Genitourinary Disor: Yes Genitourinary Disorders: UTI-Chronic Gastrointestinal History of Gastrointestinal Di: Yes Gastrointestinal Disorders: Gastroesophageal Reflux, Hiatal Hernia Musculoskeletal History of Musculoskeletal Dis: No Endocrine History of Endocrine Disorders: No HEENT History of HEENT Disorders: No Cancer History of Cancer: No Psychosocial History of Psychiatric Problem: Yes Behavioral Health Disorders: Anxiety, PTSD, Depression Integumentary History of Skin or Integumenta: No Blood Transfusions History of Blood Disorders: No Adverse Reaction to a Blood Tr: No Reviewed Nursing Assessment Reviewed/Agree w Nursing PMH: Yes Family Medical History Significant Family History: No Pertinent Family Hx Physical Exam Vital Signs Vital Sign - Last 12Hours 09/24/17 09/24/17 20:05 23:26 Temp 96.7 Pulse 89 Resp 16 B/P (MAP) 99/65 (76) Pulse Ox 98 Capillary Refill : Less Than 3 Seconds General Appearance: WD/WN, no apparent distress Eyes: Bilateral Eye Normal Inspection, Bilateral Eye PERRL, Bilateral Eye EOMI HEENT: PERRL/EOMI, pharyngeal erythema, No tonsillar exudate, other (positive rhinorrhea and nasal congestion. Sinuses nontender.) Neck: non-tender, full range of motion, supple, other (anterior cervical lymphadenopathy bilaterally without tenderness.) Respiratory: lungs clear, normal breath sounds, no respiratory distress, no accessory muscle use Cardiovascular: normal peripheral pulses, regular rate, rhythm, no edema, no murmur Gastrointestinal: normal bowel sounds, non tender, soft, No distended, other ( fundal height consistent with a 34 week uterus) Extremities: no pedal edema, no calf tenderness, normal capillary refill Neurologic/Psychiatric: alert, normal mood/affect, oriented x 3 Skin: normal color, warm/dry Progress/Results/Core Measures Suspected Sepsis Recent Fever Within 48 Hours: No Infection Criteria Present: None New/Unexplained Altered Menta: No Sepsis Screen: No Definite Risk Sepsis Diagnosis: SIRS Temperature:96.7 Pulse: 89 Respiratory Rate: 16 Blood Pressure 99 /65 Mean: 76 Results/Orders Lab Results Laboratory Tests Test 09/24/17 22:15 Range/Units Group A Streptococcus Screen NEGATIVE NEGATIVE Micro Results Microbiology 09/24/17 Throat Culture - Preliminary, Resulted No Beta Strep isolated 09/24/17 Influenza Types A,B Antigen (TALISHA) - Final, Complete My Orders Orders - RENATA CERDA Rapid Strep A Screen (09/24/17 21:50) Influenza A And B Antigens (09/24/17 21:50) Heart Tones (09/24/17 21:50) Acetaminophen Tablet (Tylenol Tablet) (09/24/17 22:12) Vital Signs/I&O Vital Sign - Last 12Hours 09/24/17 09/24/17 09/24/17 20:05 22:34 23:26 Temp 96.7 96.7 96.7 Pulse 89 84 Resp 16 16 B/P (MAP) 99/65 (76) Pulse Ox 98 Capillary Refill : Less Than 3 Seconds Blood Pressure Mean: 76 Departure Communication (Admissions) Progress Notes heart tones 150 bpm per Santos Matthews RN. Laboratory findings discussed with the patient. Plan for discharge to home with follow-up as an outpatient tomorrow with Dr. Fuller as previously scheduled. Patient is to return immediately for worsened symptoms, vaginal bleeding, vaginal discharge, abdominal pain, fever, or any other concerns. Impression Impression: Primary Impression: Upper respiratory infection Qualified Codes: J06.9 - Acute upper respiratory infection, unspecified Additional Impression: 34 weeks gestation of Disposition: HOME, SELF-CARE Condition: Improved Departure-Patient Inst. Decision time for Depature: 23:12 Referrals: TAO PHILLIP (PCP) Primary Care Physician TOMMY FULLER DO (Family) Primary Care Physician Patient Instructions: Flu, Adult (DC), Viral Upper Respiratory Infection, Adult (DC) Add. Discharge Instructions: All discharge instructions reviewed with patient and/or family. Voiced understanding. Tylenol extra strength [id number] as directed for pain or fever. Push fluids. Cool humidifier. Saline nasal spray [id number] as needed for nasal congestion. Follow-up with Dr. Fuller tomorrow as previously scheduled. Return in the emergency department for worsened symptoms or any other concerns. RENATA CERDA Sep 24, 2017 21:50
[2017-09-24] MEDS ORDERED: ACETAMINOPHEN 500 MG TAB (TYLENOL) PO STA (22:12)
[2017-09-24 23:26] VITALS: BP 102/70
== END 2017-09-24 23:26 | disposition home or self-care (01) ==
LOC: EDUNIT# 19:47 → ER 19:49
DX: O99.513 Diseases of the respiratory system complicating pregnancy, third trimester (principal); J06.9 Acute upper respiratory infection, unspecified; O99.613 Diseases of the digestive system complicating pregnancy, third trimester; K21.9 Gastro-esophageal reflux disease without esophagitis; O99.343 Other mental disorders complicating pregnancy, third trimester; F41.9 Anxiety disorder, unspecified; F43.10 Post-traumatic stress disorder, unspecified; F32.9 Major depressive disorder, single episode, unspecified; Z87.19 Personal history of other diseases of the digestive system; Z88.2 Allergy status to sulfonamides; Z3A.34 34 weeks gestation of pregnancy; Z87.891 Personal history of nicotine dependence; Z87.59 Personal history of other complications of pregnancy, childbirth and the puerperium; Z87.440 Personal history of urinary (tract) infections; Z97.5 Presence of (intrauterine) contraceptive device
CPT/HCPCS: 87430; 87804; 99283

== ENCOUNTER 2018-08-15 11:14 | Emergency (ER) | payer MEDICAID ==
[~2018-08-15] VITALS: Ht 177.8 cm; Wt 80.7 kg
[~2018-08-15 11:14] MED LIST changes: +NAPR-915 PO; -NAPR500T4 PO
[2018-08-15] MEDS ORDERED: METH4TAB PO (11:25)
--- NOTE | 2018-08-15 11:25 | ED Upper Extremity ---
General Stated Complaint: THUMB PAIN Source: patient Exam Limitations: no limitations History of Present Illness Date Seen by Provider: Aug 15, 2018 Time Seen by Provider: 11:21 Initial Comments To ER with right thumb pain. 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 She injured this last week and has had some residual pain when she lifted something. She then reinjured at this morning while picking up a box. There is no fall or popping sensation or apparent dislocation she reports. Onset: just prior to arrival Severity: mild Pain/Injury Location: right thumb Method of Injury: other (lifting a box) Modifying Factors: Worse With Movement Allergies and Home Medications Allergies Coded Allergies: Sulfa (Sulfonamide Antibiotics) (Unverified Allergy, Unknown, 08/18/14) Home Medications Citalopram Hydrobromide 20 Mg Tablet, 20 MG PO DAILY, (Reported) Famotidine 20 Mg Tablet, 20 MG PO DAILY, (Reported) Vit No.124/Iron/FA 1 Each Tablet, 1 EACH PO DAILY, (Reported) Patient Home Medication List Home Medication List Reviewed: Yes Review of Systems Constitutional: see HPI EENTM: see HPI Respiratory: no symptoms reported Cardiovascular: no symptoms reported Genitourinary: no symptoms reported Musculoskeletal: see HPI Skin: no symptoms reported Psychiatric/Neurological: No Symptoms Reported Past Pwjnqgh-Dnzwmi-Suoxdm Hx Patient Social History Type Used: Cigarettes Former Smoker, Quit: December 18, 2016 2nd Hand Smoke Exposure: Yes Recent Hopitalizations: No Immunizations Up To Date Tetanus Booster (TDap): Unknown Date of Influenza Vaccine: May 28, 2017 Seasonal Allergies Seasonal Allergies: No Past Medical History Surgeries: Yes (left knee surgery, WISDOM TEETH, D&C) Section, Gallbladder, Orthopedic Respiratory: No Cardiac: No Neurological: Yes Meningitis Reproductive Disorders: Yes Female Reproductive Disorders: Denies, 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 0.0oz. 89.241766ep; 28.0 BMI Method:Stated General Appearance: WD/WN, no apparent distress HEENT: PERRL/EOMI, normal ENT inspection Neck: non-tender, full range of motion Respiratory: no respiratory distress, no accessory muscle use Gastrointestinal: normal bowel sounds, non tender Shoulder: normal inspection, non-tender Elbow/Forearm: normal inspection, non-tender, Right Wrist: Yes normal inspection, Yes non-tender Hand: Right, soft tissue tenderness (tenderness around the thenar eminence. There is no apparent dislocation no swelling no deformity no erythema. She is able to flex and extend the thumb but this does cause her pain.) Neurologic/Psychiatric: alert, normal mood/affect, oriented x 3 Skin: normal color, warm/dry Departure Impression Primary Impression: Thumb pain Qualified Codes: M79.644 - Pain in right finger(s) Disposition: 01 HOME, SELF-CARE Condition: Stable Departure-Patient Inst. Decision time for Depature: 11:24 Referrals: TAO PHILLIP (PCP) Primary Care Physician TOMMY FULLER DO (Family) Primary Care Physician Patient Instructions: Sprained Thumb Add. Discharge Instructions: 1. Follow-up with an orthopedist of your choosing. Wear the splint for the next 1-2 weeks or until pain subsides. Scripts Methylprednisolone (Medrol) 4 Mg Tab.ds.pk 4 MG PO UD, #1 PKG Prov: ARIK LEYVA APRN 08/15/18 ARIK LEYVA APRN Aug 15, 2018 11:25
[2018-08-15 11:42] VITALS: BP 123/60
== END 2018-08-15 11:42 | disposition home or self-care (01) ==
LOC: EDUNIT# 11:14 → ER 11:16
DX: M79.644 Pain in right finger(s) (principal); K21.9 Gastro-esophageal reflux disease without esophagitis; F41.9 Anxiety disorder, unspecified; F43.10 Post-traumatic stress disorder, unspecified; F32.9 Major depressive disorder, single episode, unspecified; Z88.2 Allergy status to sulfonamides; Z87.891 Personal history of nicotine dependence; Z98.890 Other specified postprocedural states; Z97.5 Presence of (intrauterine) contraceptive device; Z87.440 Personal history of urinary (tract) infections; Z87.19 Personal history of other diseases of the digestive system; X50.0XXA Overexertion from strenuous movement or load, initial encounter
CPT/HCPCS: 99282

== ENCOUNTER 2018-08-28 09:41 | Emergency (ER) | payer MEDICAID ==
[~2018-08-28] VITALS: Ht 177.8 cm; Wt 80.7 kg
[~2018-08-28 09:41] MED LIST changes: +METH4TAB PO
[2018-08-28] MEDS ORDERED: fentaNYL INJECTION 100 MCG/2 ML AMP ONE (10:02)
--- NOTE | 2018-08-28 10:04 | NUR ---
DR POWELL INTO ROOM ET STATES HE IS UNABLE TO PALPATE A PULSE.
[2018-08-28] MEDS ORDERED: HYDROmorphone 2 MG/ML VIAL (DILAUDID) IV STA (10:13)
[2018-08-28] MEDS ORDERED: ETOMIDATE IV SOLN 20 MG/10 ML VIAL IV ONE (10:15)
[2018-08-28] MEDS ORDERED: fentaNYL INJECTION 100 MCG/2 ML AMP IVP ONE (10:15)
[2018-08-28 10:18] LABS: BASOPHILS % (AUTO) 0 % (0-10); EOSINOPHILS # (AUTO) 0.2 10^3/uL (0.0-0.3); EOSINOPHILS % (AUTO) 3 % (0-10); HEMATOCRIT 39 % (35-52); HEMOGLOBIN 12.7 G/DL (11.5-16.0); LYMPHOCYTES % (AUTO) 40 % (12-44); MEAN CORPUSCULAR HEMOGLOBIN 28 PG (25-34); MEAN CORPUSCULAR HGB CONC 32 G/DL (32-36); MEAN CORPUSCULAR VOLUME 86 FL (80-99); MEAN PLATELET VOLUME 8.1 FL (7.4-10.4); MONOCYTES # (AUTO) 0.5 X 10^3 (0.0-1.0); MONOCYTES % (AUTO) 7 % (0-12); NEUTROPHILS # (AUTO) 3.7 X 10^3 (1.8-7.8); NEUTROPHILS % (AUTO) 49 % (42-75); PLATELET COUNT 377 10^3/uL (130-400); RED BLOOD COUNT 4.57 10^6/uL (4.35-5.85); WHITE BLOOD COUNT 7.4 10^3/uL (4.3-11.0)
--- NOTE | 2018-08-28 10:25 | NUR ---
IN ROOM EXPLAINING TO PT THAT SHE WILL BE TRANSFERRED TO .
--- NOTE | 2018-08-28 10:30 | NUR ---
LEFT PEDAL DOPPLERED PULSE HEARD AFTER MANIPULATION. NOTIFIED WHO IS ATTEMPTING TO CALL [facility].
[2018-08-28 10:32] LABS: PROTHROMBIN TIME PATIENT 13.2 SEC (12.2-14.7)
--- NOTE | 2018-08-28 10:34 | Diagnostic Imaging Report ---
INDICATION: Left knee injury. FINDINGS: AP and lateral views of the left knee show dislocation of the knee. The tibia fibula are dislocated posteriorly. There are fractures of the anterior superior margin of the proximal tibia. IMPRESSION: Fracture dislocation of the left knee. CRITICAL FINDING Report given to Dr. Alvarez at 11:23 p.m. 08/28/2018/cb Dictated by: Dictated on workstation # [id number]
--- NOTE | 2018-08-28 10:34 | NUR ---
PT WOKE UP ET ASKING FOR BLANKET. ABLE TO MOVE TOES. DOPPLERED PEDAL PULSE FELT.
[2018-08-28 10:39] LABS: ALANINE AMINOTRANSFERASE 14 U/L (0-55); ALBUMIN 4.6 GM/DL (3.2-4.5); ALKALINE PHOSPHATASE 53 U/L (40-136); BILIRUBIN,TOTAL 0.4 MG/DL (0.1-1.0); BUN/CREATININE RATIO 10; CALCIUM 9.4 MG/DL (8.5-10.1); CARBON DIOXIDE 25 MMOL/L (21-32); CHLORIDE 107 MMOL/L (98-107); CREATININE SERUM 0.96 MG/DL (0.60-1.30); GFR ESTIMATED > 60; GLUCOSE 88 MG/DL (70-105); POTASSIUM 3.5 MMOL/L (3.6-5.0); SODIUM 141 MMOL/L (135-145); TOTAL PROTEIN 7.6 GM/DL (6.4-8.2)
--- NOTE | 2018-08-28 10:43 | Diagnostic Imaging Report ---
INDICATION: Left knee dislocation followup There has been interval reduction of the left knee. There is a fracture through the tibial plateau that extends from the medial aspect of the lateral tibial plateau through the medial tibial metaphysis. IMPRESSION: Interval reduction of the left knee. Dictated by: Dictated on workstation # [id number]
--- NOTE | 2018-08-28 10:50 | NUR ---
[facility] CARE HERE AT THIS TIME.
--- NOTE | 2018-08-28 10:58 | NUR ---
RUTH ANN TALKING TO BIJAL ON THE PHONE WITH THE CHANGE OF PLANS.
--- NOTE | 2018-08-28 11:07 | ED Fall/Injury ---
General Chief Complaint: Lower Extremity Stated Complaint: LEFT LEG INJ Nursing Triage Note: ARRIVED VIA WC TO ROOM 10 WITH A DEFORMED LEFT LOWER LEG. STATES SHE STEPPED OFF A PORCH WHICH WAS TWO FEET FROM THE GROUND THEN STEPPED INTO A HOLE. DENIES HITTING HER HEAD OR LOC. Source: patient, family Exam Limitations: no limitations History of Present Illness Date Seen by Provider: Aug 28, 2018 Time Seen by Provider: 09:55 Initial Comments This 33-year-old woman presents to the emergency room with left leg injury and deformity below the knee after falling off a porch. Height of porch was about 3 feet, and she fell into a hole resulting in a torquing type injury of the knee. She is able to move her toes and retains feeling in her feet. Patient denies any other injury. She did not lose consciousness. She denies as she has had a tubal ligation. Pulse of the left foot cannot be palpated in contrast to the right pedal pulse which is easily palpable.. Allergies and Home Medications Allergies Coded Allergies: Sulfa (Sulfonamide Antibiotics) (Unverified Allergy, Unknown, 08/18/14) Home Medications Citalopram Hydrobromide 20 Mg Tablet, 20 MG PO DAILY, (Reported) Famotidine 20 Mg Tablet, 20 MG PO DAILY, (Reported) Methylprednisolone 4 Mg Tab.ds.pk, 4 MG PO UD Prescribed by: ARIK LEYVA on 08/15/18 1125 Vit No.124/Iron/FA 1 Each Tablet, 1 EACH PO DAILY, (Reported) Patient Home Medication List Home Medication List Reviewed: Yes Review of Systems Review of Systems Constitutional: no symptoms reported Eyes: No Symptoms Reported Ears, Nose, Mouth, Throat: no symptoms reported Respiratory: no symptoms reported Cardiovascular: see HPI Gastrointestinal: no symptoms reported Genitourinary: no symptoms reported Musculoskeletal: see HPI Skin: see HPI Psychiatric/Neurological: No Symptoms Reported Past Twufnnc-Vlqdxo-Rucogx Hx Past Med/Social Hx: Reviewed and Corrections made Patient Social History Alcohol Use: Occasionally Uses Recreational Drug Use: No Smoking Status: Current Everyday Smoker Type Used: Cigars, Cigarettes Former Smoker, Quit: December 18, 2016 2nd Hand Smoke Exposure: Yes Recent Foreign Travel: No Contact w/Someone Who Travel: No Recent Infectious Disease Expo: No Recent Hopitalizations: No Immunizations Up To Date Tetanus Booster (TDap): Unknown Date of Influenza Vaccine: May 28, 2017 Seasonal Allergies Seasonal Allergies: No Past Medical History Surgeries: Yes (left knee surgery, WISDOM TEETH, D&C) Section, Gallbladder, Orthopedic, Tubal Ligation Respiratory: No Cardiac: No Neurological: Yes Meningitis Reproductive Disorders: Yes Female Reproductive Disorders: Denies, 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 0.0oz. 80.191896ut; 28.0 BMI Method:Stated General Appearance: WD/WN, moderate distress HEENT: PERRL/EOMI, normal ENT inspection, pharynx normal Neck: normal inspection Cardiovascular: no edema, no murmur, tachycardia Respiratory: chest non-tender, lungs clear, normal breath sounds, no respiratory distress, no accessory muscle use Gastrointestinal: normal bowel sounds, non tender, soft Extremities: other (gross deformity of the left knee with apparent posterior lateral dislocation of the tibia and fibula. There is localized swelling, tenderness, and pain throughout the knee and proximal lower leg. Patient retains movement and sensation of the foot and toes. Capillary refill is sluggish, about 3 seconds initially and then diminishing. 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, no motor/sensory deficits, alert, normal mood/affect, oriented x 3 Skin: normal color, warm/dry, other (see extremity exam above) Jeyson Coma Score Best Eye Response: (4) Open Spontaneously Best Verbal Response: (5) Oriented Best Motor Response: (6) Obeys Commands [place] Total: 15 Procedures/Interventions Procedure: MANIPULATION OF LEFT LOWER LEG FROM DISLOCATION Splinting and Joint Reduction : Pre-Proc Neuro Vasc Exam: abnormal Post-Proc Neuro Vasc Exam: unchanged from pre-exam Joint Reduction Site: knee (L) Reduction Attempts: 1 Pre-Procedure NV Exam: Yes post joint reduction film: joint reduced Progress Patient was sedated with etomidate 20 mg IV and allotted 1 mg. After adequate sedation the joint was reduced with traction and pressure. A long leg splint was applied with Ortho-Glass posteriorly and laterally. Neurovascular exam was unchanged. Patient retain it movement and sensation of the foot and toes. Pulse was not palpable but was observable by Doppler. Hand-Made Type: orthoglass Splint Application: Long Leg Progress/Results/Core Measures Results/Orders Lab Results Laboratory Tests Test 08/28/18 10:05 Range/Units White Blood Count 7.4 4.3-11.0 10^3/uL Red Blood Count 4.57 4.35-5.85 10^6/uL Hemoglobin 12.7 11.5-16.0 G/DL Hematocrit 39 35-52 % Mean Corpuscular Volume 86 80-99 FL Mean Corpuscular Hemoglobin 28 25-34 PG Mean Corpuscular Hemoglobin Concent 32 32-36 G/DL Red Cell Distribution Width 14.0 10.0-14.5 % Platelet Count 377 130-400 10^3/uL Mean Platelet Volume 8.1 7.4-10.4 FL Neutrophils (%) (Auto) 49 42-75 % Lymphocytes (%) (Auto) 40 12-44 % Monocytes (%) (Auto) 7 0-12 % Eosinophils (%) (Auto) 3 0-10 % Basophils (%) (Auto) 0 0-10 % Neutrophils # (Auto) 3.7 1.8-7.8 X 10^3 Lymphocytes # (Auto) 3.0 1.0-4.0 X 10^3 Monocytes # (Auto) 0.5 0.0-1.0 X 10^3 Eosinophils # (Auto) 0.2 0.0-0.3 10^3/uL Basophils # (Auto) 0.0 0.0-0.1 10^3/uL Prothrombin Time 13.2 12.2-14.7 SEC INR Comment 1.0 0.8-1.4 Activated Partial Thromboplast Time 27 24-35 SEC Sodium Level 141 135-145 MMOL/L Potassium Level 3.5 L 3.6-5.0 MMOL/L Chloride Level 107 98-107 MMOL/L Carbon Dioxide Level 25 21-32 MMOL/L Anion Gap 9 5-14 MMOL/L Blood Urea Nitrogen 10 7-18 MG/DL Creatinine 0.96 0.60-1.30 MG/DL Estimat Glomerular Filtration Rate > 60 BUN/Creatinine Ratio 10 Glucose Level 88 70-105 MG/DL Calcium Level 9.4 8.5-10.1 MG/DL Corrected Calcium 8.5-10.1 MG/DL Total Bilirubin 0.4 0.1-1.0 MG/DL Aspartate Amino Transf (AST/SGOT) 16 5-34 U/L Alanine Aminotransferase (ALT/SGPT) 14 0-55 U/L Alkaline Phosphatase 53 40-136 U/L Total Protein 7.6 6.4-8.2 GM/DL Albumin 4.6 H 3.2-4.5 GM/DL My Orders Orders - CHANG ALVAREZ MD Saline Lock/Iv-Start (08/28/18 10:03) Fentanyl Injection (Sublimaze Injection (08/28/18 10:15) Fentanyl Injection (Sublimaze Injection (08/28/18 10:02) Knee, Left, 2 Views (Ap & Lat) (08/28/18 10:11) Etomidate Injection (Amidate Injection) (08/28/18 10:15) Hydromorphone Injection (Dilaudid Inject (08/28/18 10:13) Cbc With Automated Diff (08/28/18 10:13) Comprehensive Metabolic Panel (08/28/18 10:13) Protime With Inr (08/28/18 10:13) Partial Thromboplastin Time (08/28/18 10:13) Knee, Left, 2 Views (Ap & Lat) (08/28/18 10:31) Medications Given in ED Vital Signs/I&O 08/28/18 08/28/18 10:00 11:14 Temp 98.0 Pulse 104 99 Resp 16 16 B/P (MAP) 111/75 (87) 119/78 (92) Pulse Ox 100 98 Blood Pressure Mean: 87 Progress Progress Note : Time: 11:10 Progress Note Patient's pain was treated with fentanyl 100 g IV. There was immediate concern for vascular compromise upon initial evaluation. After brief consultation with Dr. Coleman, orthopedic surgeon transitional living specialist, preparations were made for reduction of the fracture/dislocation. X-ray confirmed proximal tibial fracture with posterior dislocation of the knee. Verbal informed consent was obtained from the patient after explaining risks and benefits of conscious sedation. Patient then was sedated with etomidate 20 mg IV and pain was further managed with Dilaudid 1 mg IV. Fracture/dislocation was reduced after adequate sedation with traction and posterior to anterior pressure on the lower leg. Reduction was successful and confirmed by x-rays. Leg was then splinted with Ortho-Glass. Patient was felt to have low risk for compartment syndrome as tissues remained soft and her pain improved dramatically after reduction. She retained sensation and movement of the toes after reduction but skin color remained dusky. [facility] is here at this time for transport. Risks and benefits were discussed with the patient, and she agrees with transfer. Case was discussed with Dr. Fitzgerald in the ER at [facility]. [facility] presently has vascular and orthopedic services available to manage this patient's injuries. Rmoeo was placed prior to transfer. Pedal pulse was heard by Doppler but could not be manually palpated prior to transfer. Concern for vascular compromise remained. Diagnostic Imaging Diagonstic Imaging: Xray Plain Films/CT/US/NM/MRI: knee Comments Left knee x-ray viewed by me and report reviewed. See report below: NAME: LANG CRAFT [facility] REC#: [id number] PT STATUS: DEP ER : 1985 PHYSICIAN: CHANG ALVAREZ MD ADMIT DATE: 08/28/18/ER Signed Date of Exam: 08/28/18 KNEE, LEFT, 2 VIEWS (AP & LAT) INDICATION: Left knee injury. FINDINGS: AP and lateral views of the left knee show dislocation of the knee. The tibia fibula are dislocated posteriorly. There are fractures of the anterior superior margin of the proximal tibia. IMPRESSION: Fracture dislocation of the left knee. CRITICAL FINDING Report given to Dr. Alvarez at 11:23 p.m. 08/28/2018/cb Dictated by: Dictated on workstation # [id number] Dict: 08/28/18 1030 Trans: 08/28/18 1126 Interpreted by: LOREN GONZALEZ MD Electronically signed by: LOREN GONZALEZ MD 08/28/18 1126 Diagonstic Imaging: Xray Plain Films/CT/US/NM/MRI: knee Comments Postreduction x-ray viewed by me and report reviewed. See report below: NAME: LANG CRAFT [facility] REC#: [id number] PT STATUS: REG ER : 1985 PHYSICIAN: CHANG ALVAREZ MD ADMIT DATE: 08/28/18/ER Draft Date of Exam:08/28/18 KNEE, LEFT, 2 VIEWS (AP & LAT) INDICATION: Left knee dislocation followup There has been interval reduction of the left knee. There is a fracture through the tibial plateau that extends from the medial aspect of the lateral tibial plateau through the medial tibial metaphysis. IMPRESSION: Interval reduction of the left knee. Dictated on workstation # [id number] Dict: 08/28/18 1039 Trans: 08/28/18 1042 JOSE [id number] Interpreted by: LOREN GONZALEZ MD Departure Impression Primary Impression: Fracture of proximal end of left tibia Qualified Codes: S82.102A - Unspecified fracture of upper end of left tibia, initial encounter for closed fracture Additional Impressions: Left knee dislocation Qualified Codes: S83.105A - Unspecified dislocation of left knee, initial encounter Fall Qualified Codes: W19.XXXA - Unspecified fall, initial encounter Ischemic leg Disposition: 01 HOME, SELF-CARE Condition: Critical Transfer Time Spoke to Accepting Phy: 10:30 Transfer Progress Notes Patient was accepted for transfer to [facility] by Dr. Fitzgerald in the ER. He believes they have the orthopedic and vascular services this patient requires to manage the potential ischemic limb based on the information he has at this time. I expressed concern regarding the potential for further tissue damage if the patient needs to be transferred on. He acknowledged that concerned and was confident the patient can be managed at [facility]. Transfer Time: 11:20 Transfer Facility: [facility] Method of Transfer: Air Departure-Patient Inst. Referrals: TAO PHILLIP (PCP) Primary Care Physician TOMMY FULLER DO (Family) Primary Care Physician CHANG ALVAREZ MD Aug 28, 2018 11:07
[2018-08-28 11:14] VITALS: BP 119/78
--- NOTE | 2018-08-28 11:14 | NUR ---
SERGEI FROM [facility] STATES SHE WAS ABLE TO DOPPLER THE PULSE ALSO BUT WAS UNABLE TO PALPATE A PULSE ON THE LEFT FOOT.
== END 2018-08-28 11:18 | disposition short-term general hospital (02) ==
LOC: EDUNIT# 09:41 → ER 09:42
DX: S82.102A Unspecified fracture of upper end of left tibia, initial encounter for closed fracture (principal); S83.105A Unspecified dislocation of left knee, initial encounter; M62.262 Nontraumatic ischemic infarction of muscle, left lower leg; K21.9 Gastro-esophageal reflux disease without esophagitis; F41.9 Anxiety disorder, unspecified; F43.10 Post-traumatic stress disorder, unspecified; F32.9 Major depressive disorder, single episode, unspecified; R40.2142 Coma scale, eyes open, spontaneous, at arrival to emergency department; R40.2252 Coma scale, best verbal response, oriented, at arrival to emergency department; R40.2362 Coma scale, best motor response, obeys commands, at arrival to emergency department; Z88.2 Allergy status to sulfonamides; Z87.891 Personal history of nicotine dependence; Z98.890 Other specified postprocedural states; Z97.5 Presence of (intrauterine) contraceptive device; Z87.440 Personal history of urinary (tract) infections; Z87.19 Personal history of other diseases of the digestive system; Z98.51 Tubal ligation status; Z79.52 Long term (current) use of systemic steroids; W13.9XXA Fall from, out of or through building, not otherwise specified, initial encounter
CPT/HCPCS: 27752; 29505; 36415; 51702; 73560; 80053; 85025; 85610; 85730; 96374; 96375; 99291

== ENCOUNTER 2018-10-02 13:29 | Emergency (ER) | payer MEDICAID ==
[~2018-10-02] VITALS: Ht 177.8 cm; Wt 83.9 kg
--- NOTE | 2018-10-02 14:35 | ED Lower Extremity ---
General Chief Complaint: Lower Extremity Stated Complaint: POST OP COMPLICATIONS Nursing Triage Note: PT REPORTS HAVING KNEE/LEG SURGERY. PT HAD EXTERANAL FIXATION AND ONE OF HER PIN SITES HAS NOT HEALED. PT HAS BEEN PUTTING ANTIBIOTIC CREAM ON SITE FOR TWO WEEKS BUT NOW HAS A KNOT UNDER IT. PT CALLED IN [facility] WHERE SURGERY WAS PERFORMED AND THEY ADVISED HER TO COME TO ER. Nursing Sepsis Screen: No Definite Risk Source: patient Exam Limitations: no limitations History of Present Illness Date Seen by Provider: Oct 02, 2018 Time Seen by Provider: 14:30 Initial Comments To ER with reports of left lower extremity pain. In August she sustained a left tibia/fibular fracture. She was flown from here to [place] and then from [place] onto [facility]. She had external fixator placed. She complains today that the side of the anterior lower leg, the former site of one external fixator pins, she had some swelling around this last night. She also had some discoloration to the lower part of her foot. Both of those have resolved with the exception of some minor swelling around the site currently. She is currently on Keflex and a topical antibiotic cream. Yes so severe that his Onset: just prior to arrival Severity: moderate Pain/Injury Location: left hip Modifying Factors: Worse With Movement Allergies and Home Medications Allergies Coded Allergies: Sulfa (Sulfonamide Antibiotics) (Unverified Allergy, Unknown, 10/02/18) Home Medications Citalopram Hydrobromide 20 Mg Tablet, 20 MG PO DAILY, (Reported) Famotidine 20 Mg Tablet, 20 MG PO DAILY, (Reported) Methylprednisolone 4 Mg Tab.ds.pk, 4 MG PO UD Prescribed by: ARIK LEYVA on 08/15/18 1125 Vit No.124/Iron/FA 1 Each Tablet, 1 EACH PO DAILY, (Reported) Patient Home Medication List Home Medication List Reviewed: Yes Review of Systems Constitutional: see HPI; No chills, No fever EENTM: see HPI Respiratory: no symptoms reported Cardiovascular: no symptoms reported Genitourinary: no symptoms reported Musculoskeletal: see HPI Skin: no symptoms reported Psychiatric/Neurological: No Symptoms Reported Past Izonntj-Kpoqmy-Mhsyvw Hx Patient Social History Alcohol Use: Rarely Uses Recreational Drug Use: No Smoking Status: Former Smoker Type Used: Cigars, Cigarettes Former Smoker, Quit: December 18, 2016 2nd Hand Smoke Exposure: Yes Recent Foreign Travel: No Contact w/Someone Who Travel: No Recent Infectious Disease Expo: No Recent Hopitalizations: Yes (AUGUST 2018) Physical Abuse: No Sexual Abuse: No Immunizations Up To Date Tetanus Booster (TDap): Unknown Date of Influenza Vaccine: May 28, 2017 Seasonal Allergies Seasonal Allergies: No Past Medical History Surgeries: Yes (left knee surgery, WISDOM TEETH, D&C) Section, Gallbladder, Orthopedic, Tubal Ligation Respiratory: No Cardiac: No Neurological: Yes Meningitis Reproductive Disorders: Yes Female Reproductive Disorders: Denies, 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 0.0oz. 83.350704zo; 28.0 BMI Method:Stated General Appearance: WD/WN, no apparent distress HEENT: PERRL/EOMI, normal ENT inspection Neck: non-tender Respiratory: no respiratory distress, no accessory muscle use Hips: bilateral hip non-tender, bilateral hip normal inspection, bilateral hip normal range of motion Legs: left leg other (knee immobilizer. The left leg is wrapped in Dao bandages and the knee immobilizer. The Dao bandage was removed. There is a small area to the anterior medial lower leg at the site of former fixator pin. There is some small amount of bloody drainage but no purulence to this. No surrounding erythema. Bedside ultrasound was placed in this area and there is no visualized fluid collection. There is no erythema or ecchymosis to the lower leg. Culture of this wound was collected and sent to lab.) Knees: bilateral knee non-tender, bilateral knee normal inspection, bilateral knee normal range of motion Ankles: bilateral ankle non-tender, bilateral ankle normal inspection, bilateral ankle normal range of motion Feet: bilateral foot non-tender, bilateral foot normal inspection, bilateral foot normal range of motion Neurologic/Psychiatric: alert, normal mood/affect, oriented x 3 Skin: normal color, warm/dry Progress/Results/Core Measures Results/Orders Vital Signs/I&O 10/02/18 13:37 Temp 97.9 Pulse 135 Resp 18 B/P (MAP) 110/56 (74) Pulse Ox 98 Blood Pressure Mean: 74 Departure Impression Primary Impression: Draining postoperative wound Qualified Codes: T81.89XA - Other complications of procedures, not elsewhere classified, initial encounter Disposition: HOME, SELF-CARE Condition: Stable Departure-Patient Inst. Decision time for Depature: 14:34 Referrals: TA[facility] PHILLIP (PCP) Primary Care Physician TOMMY FULLER DO (Family) Primary Care Physician Patient Instructions: Wound Care (DC) Add. Discharge Instructions: 1. Continue with the current antibiotics orally and topically. Return to ER for any concerns. All discharge instructions reviewed with patient and/or family. Voiced understanding. ARIK LEYVA APRN Oct 02, 2018 14:35
[2018-10-02 14:43] VITALS: BP 110/56
[2018-10-02] MEDS ORDERED: oxyCODONE/APAP 10/325MG (PERCOCET 10) TABLET PO ONE (14:45)
[2018-10-02] MEDS ORDERED: oxyCODONE/APAP 5/325MG (PERCOCET 5) TABLET PO ONE (14:45)
== END 2018-10-02 14:43 | disposition home or self-care (01) ==
LOC: EDUNIT# 13:29 → ER 13:32
DX: T81.89XA Other complications of procedures, not elsewhere classified, initial encounter (principal); K21.9 Gastro-esophageal reflux disease without esophagitis; F41.9 Anxiety disorder, unspecified; F43.10 Post-traumatic stress disorder, unspecified; F32.9 Major depressive disorder, single episode, unspecified; Z88.2 Allergy status to sulfonamides; Z79.52 Long term (current) use of systemic steroids; Z98.890 Other specified postprocedural states; Z87.891 Personal history of nicotine dependence; Z98.51 Tubal ligation status; Z97.5 Presence of (intrauterine) contraceptive device; Z86.61 Personal history of infections of the central nervous system; Z87.440 Personal history of urinary (tract) infections
CPT/HCPCS: 87070; 87077; 87186; 87205

== ENCOUNTER 2018-10-24 18:28 | Emergency (ER) | payer MEDICAID ==
[~2018-10-24] VITALS: Ht 177.8 cm; Wt 84.4 kg
[2018-10-24 19:57] LABS: BASOPHILS % (AUTO) 0 % (0-10); EOSINOPHILS # (AUTO) 0.2 10^3/uL (0.0-0.3); EOSINOPHILS % (AUTO) 3 % (0-10); HEMATOCRIT 39 % (35-52); HEMOGLOBIN 12.9 G/DL (11.5-16.0); LYMPHOCYTES # (AUTO) 2.8 X 10^3 (1.0-4.0); LYMPHOCYTES % (AUTO) 32 % (12-44); MEAN CORPUSCULAR HEMOGLOBIN 29 PG (25-34); MEAN CORPUSCULAR HGB CONC 33 G/DL (32-36); MEAN CORPUSCULAR VOLUME 87 FL (80-99); MEAN PLATELET VOLUME 8.1 FL (7.4-10.4); MONOCYTES # (AUTO) 0.6 X 10^3 (0.0-1.0); MONOCYTES % (AUTO) 7 % (0-12); NEUTROPHILS # (AUTO) 5.1 X 10^3 (1.8-7.8); NEUTROPHILS % (AUTO) 58 % (42-75); PLATELET COUNT 413 10^3/uL (130-400); RED CELL DISTRIBUTION WIDTH 14.4 % (10.0-14.5); WHITE BLOOD COUNT 8.7 10^3/uL (4.3-11.0)
[2018-10-24] MEDS ORDERED: NITROGLYCERIN 0.4 MG SL TABS BTL 25'S SL PRN (20:00)
[2018-10-24] MEDS ORDERED: ASPIRIN 81 MG CHEW (CHILDREN'S ASA) PO ONE (20:00)
[2018-10-24 20:10] LABS: INR 1.1 (0.8-1.4); PROTHROMBIN TIME PATIENT 13.7 SEC (12.2-14.7)
[2018-10-24 20:18] LABS: ALANINE AMINOTRANSFERASE 12 U/L (0-55); ALBUMIN 4.4 GM/DL (3.2-4.5); ALKALINE PHOSPHATASE 71 U/L (40-136); AMYLASE 54 U/L (25-125); BILIRUBIN,TOTAL 0.3 MG/DL (0.1-1.0); BUN/CREATININE RATIO 9; CALCIUM 9.7 MG/DL (8.5-10.1); CARBON DIOXIDE 24 MMOL/L (21-32); CHLORIDE 106 MMOL/L (98-107); CREATINE KINASE 40 U/L (29-168); CREATININE SERUM 0.81 MG/DL (0.60-1.30); GFR ESTIMATED > 60; GLUCOSE 105 MG/DL (70-105); LIPASE 27 U/L (8-78); MAGNESIUM 2.3 MG/DL (1.8-2.4); POTASSIUM 3.6 MMOL/L (3.6-5.0); SODIUM 142 MMOL/L (135-145); TOTAL PROTEIN 7.4 GM/DL (6.4-8.2)
[2018-10-24 20:26] LABS: CREATINE KINASE MB 0.6 NG/ML (<6.6); MYOGLOBIN SERUM 21.4 NG/ML (10.0-92.0)
--- NOTE | 2018-10-24 21:20 | Diagnostic Imaging Report ---
INDICATION: Chest pain. EXAMINATION: Two views of the chest were obtained. FINDINGS: The lungs are clear. The heart and vessels are normal. There is no effusion or pneumothorax. IMPRESSION: No acute appearing abnormality. Dictated by: Dictated on workstation # [id number]
[2018-10-24] MEDS ORDERED: NS 100 ML (IVPB) BAG IV ONE (21:30)
[2018-10-24] MEDS ORDERED: RECEIVED CONTRAST 20 ML VIAL IV SCH (21:30)
[2018-10-24] MEDS ORDERED: IOHEXOL 350 MG/ML 100 ML (OMNIPAQUE 350) VIAL IV ONE (21:30)
--- NOTE | 2018-10-24 23:54 | ED Cardiac General ---
History of Present Illness General Chief Complaint: Chest Pain Stated Complaint: L LEG SWELLING,CP Nursing Triage Note: PT TO ROOM #1 VIA ED W/C BY SPOUSE. A&OX4. C/O MEDIAL CHEST DISCOMFORT AND LT LEG SWELLING. REPORTS INTERMITTENT CHEST DISCOMFORT DESCRIBED PRESSURE FOR APPROX 4 DAYS. REPORTS LT KNEE SURGEY ON 09/11/18. REPORTS SWELLING TO LT MEDIAL LEG FOR APPROX 4 DAYS. PT STATES, "I BECAME WORRIED WHEN THE CHEST PAIN AND LEG SWELLING WERE HAPPENING TOGETHER." PT REPORTS TO BE TAKING ELIQUIS SINCE SURGICAL PROCEDURE TO LT KNEE. 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 ASA po LIME KILN AND RECAUSTICIZING OPERATOR: No Allergies and Home Medications Allergies Coded Allergies: Sulfa (Sulfonamide Antibiotics) (Unverified Allergy, Unknown, 10/02/18) Home Medications Citalopram Hydrobromide 20 Mg Tablet, 20 MG PO DAILY, (Reported) Famotidine 20 Mg Tablet, 20 MG PO DAILY, (Reported) Methylprednisolone 4 Mg Tab.ds.pk, 4 MG PO UD Prescribed by: ARIK LEYVA on 08/15/18 1125 Vit No.124/Iron/FA 1 Each Tablet, 1 EACH PO DAILY, (Reported) Past Ugrosoo-Drfwoq-Azqnzr Hx Patient Social History Alcohol Use: Rarely Uses Number of Drinks Today: 0 Recreational Drug Use: No Smoking Status: Current Someday Smoker Type Used: Cigars, Cigarettes Former Smoker, Quit: December 18, 2016 2nd Hand Smoke Exposure: Yes Recent Foreign Travel: No Contact w/Someone Who Travel: No Recent Infectious Disease Expo: No Recent Hopitalizations: Yes (AUGUST 2018) Immunizations Up To Date Tetanus Booster (TDap): Unknown Date of Influenza Vaccine: May 28, 2017 Seasonal Allergies Seasonal Allergies: No Past Medical History Surgeries: Yes (left knee surgery, WISDOM TEETH, D&C) Section, Gallbladder, Orthopedic, Tubal Ligation Respiratory: No Cardiac: No Neurological: Yes Meningitis Reproductive Disorders: Yes Female Reproductive Disorders: Denies, 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 0.0oz. [id number]; 28.0 BMI Method:Stated Progress/Results/Core Measures Results/Orders Lab Results Laboratory Tests Test 10/24/18 19:48 Range/Units White Blood Count 8.7 4.3-11.0 10^3/uL Red Blood Count 4.47 4.35-5.85 10^6/uL Hemoglobin 12.9 11.5-16.0 G/DL Hematocrit 39 35-52 % Mean Corpuscular Volume 87 80-99 FL Mean Corpuscular Hemoglobin 29 25-34 PG Mean Corpuscular Hemoglobin Concent 33 32-36 G/DL Red Cell Distribution Width 14.4 10.0-14.5 % Platelet Count 413 H 130-400 10^3/uL Mean Platelet Volume 8.1 7.4-10.4 FL Neutrophils (%) (Auto) 58 42-75 % Lymphocytes (%) (Auto) 32 12-44 % Monocytes (%) (Auto) 7 0-12 % Eosinophils (%) (Auto) 3 0-10 % Basophils (%) (Auto) 0 0-10 % Neutrophils # (Auto) 5.1 1.8-7.8 X 10^3 Lymphocytes # (Auto) 2.8 1.0-4.0 X 10^3 Monocytes # (Auto) 0.6 0.0-1.0 X 10^3 Eosinophils # (Auto) 0.2 0.0-0.3 10^3/uL Basophils # (Auto) 0.0 0.0-0.1 10^3/uL Prothrombin Time 13.7 12.2-14.7 SEC INR Comment 1.1 0.8-1.4 Activated Partial Thromboplast Time 31 24-35 SEC Sodium Level 142 135-145 MMOL/L Potassium Level 3.6 3.6-5.0 MMOL/L Chloride Level 106 98-107 MMOL/L Carbon Dioxide Level 24 21-32 MMOL/L Anion Gap 12 5-14 MMOL/L Blood Urea Nitrogen 7 7-18 MG/DL Creatinine 0.81 0.60-1.30 MG/DL Estimat Glomerular Filtration Rate > 60 BUN/Creatinine Ratio 9 Glucose Level 105 70-105 MG/DL Calcium Level 9.7 8.5-10.1 MG/DL Corrected Calcium 9.4 8.5-10.1 MG/DL Magnesium Level 2.3 1.8-2.4 MG/DL Total Bilirubin 0.3 0.1-1.0 MG/DL Aspartate Amino Transf (AST/SGOT) 15 5-34 U/L Alanine Aminotransferase (ALT/SGPT) 12 0-55 U/L Alkaline Phosphatase 71 40-136 U/L Total Creatine Kinase 40 29-168 U/L Creatine Kinase MB 0.6 <6.6 NG/ML Myoglobin 21.4 10.0-92.0 NG/ML Troponin I < 0.028 <0.028 NG/ML B-Type Natriuretic Peptide < 10.0 <100.0 PG/ML Total Protein 7.4 6.4-8.2 GM/DL Albumin 4.4 3.2-4.5 GM/DL Amylase Level 54 25-125 U/L Lipase 27 8-78 U/L My Orders Orders - EVITA MCDOWELL DO Saline Lock/Iv-Start (10/24/18 19:47) Ekg Tracing (10/24/18 19:47) O2 (10/24/18 19:47) Monitor-Rhythm Ecg Trace Only (10/24/18 19:47) Cbc With Automated Diff (10/24/18:47) Magnesium (10/24/18 19:47) Cardiac Profile 1 (10/24/18 19:47) Comprehensive Metabolic Panel (10/24/18 19:47) Myoglobin Serum (10/24/18 19:47) Protime With Inr (10/24/18:47) Partial Thromboplastin Time (10/24/18 19:47) Lipid Panel (10/25/18 06:00) Aspirin Chewable Tablet (Baby Aspirin Ch (10/24/18 20:00) Nitroglycerin 0.4 Mg Btl 25's (Nitrostat (10/24/18 20:00) Saline Lock/Iv-Start (10/24/18 19:47) Creatine Kinase (10/24/18 19:47) Creatine Kinase Mb (10/24/18 19:47) Lipase (10/24/18 19:47) Amylase (10/24/18 19:47) BNP (10/24/18 19:47) Ct Angio Chest W (10/24/18 19:47) Chest Pa/Lat (2 View) (10/24/18 19:47) Iohexol Injection (Omnipaque 350 Mg/Ml 1 (10/24/18 21:30) Received Contrast (Contrast Received) (10/24/18 21:30) Ns (Ivpb) (Sodium Chloride 0.9% Ivpb Bag (10/24/18 21:30) Medications Given in ED Current Medications Medications Dose Ordered Sig/Saúl Route Start Time Stop Time Status Last Admin Dose Admin Aspirin 324 mg ONCE ONCE PO 10/24/18 20:00 10/24/18 20:01 DC 10/24/18 20:11 324 MG Iohexol 100 ml ONCE ONCE IV 10/24/18 21:30 10/24/18 21:31 DC 10/24/18 21:20 125 ML Nitroglycerin 0.4 mg UD PRN SL 10/24/18 20:00 10/24/18 20:11 0.4 MG Sodium Chloride 100 ml ONCE ONCE IV 10/24/18 21:30 10/24/18 21:31 DC 10/24/18 21:20 100 ML Vital Signs/I&O 10/24/18 10/24/18 19:37 19:37 Temp 98.8 Pulse 111 Resp 16 B/P (MAP) 125/85 (98) Pulse Ox 98 O2 Delivery Room Air Room Air Blood Pressure Mean: 98 Progress Progress Note : Progress Note NO COMPLAINTS DURING ER STAY Departure Impression Primary Impression: Chest pain Additional Impression: POST OP LEFT LEG SWELLING Disposition: 01 HOME, SELF-CARE Condition: Stable Departure-Patient Inst. Referrals: [facility] (PCP/Family) Primary Care Physician Patient Instructions: Chest Pain That Is Not Caused by the Heart (DC), Dependent Edema (DC), Swelling Add. Discharge Instructions: ELEVATE LEG MUCH POSSIBLE CONTINUE YOUR CURRENT MEDICATIONS PRESCRIBED FOLLOW UP WITH YOUR SURGEON TOMORROW FOR FURTHER CARE REGARDING LEG SWELLING FOLLOW UP WITH YOUR REGULAR DR TOMORROW FOR FURTHER CARE WELL All discharge instructions reviewed with patient and/or family. Voiced understanding. EVITA MCDOWELL DO Oct 24, 2018 23:54
[2018-10-24 23:58] VITALS: BP 114/80
--- NOTE | 2018-10-25 06:20 | Diagnostic Imaging Report ---
INDICATION: Chest pain. CTA chest obtained with IV contrast bolus and axial slices and MIP reconstructions. FINDINGS: Pulmonary parenchymal vessels are well opacified with no CT evidence of pulmonary emboli. There is no evidence of aortic dissection or aneurysm. There is no enlarged mediastinal or hilar nodes. There is no pleural or pericardial fluid. Lung parenchymal windows demonstrate no pulmonary parenchymal infiltrates or nodules. Visualized portions of the upper abdomen show mild fatty change in the liver. There appears to be a small hypodense lesion in the thyroid isthmus as well as in the right thyroid lobe. Recommend ultrasound followup. IMPRESSION: No CT evidence of pulmonary emboli or aortic dissection or aneurysm. No acute pulmonary infiltrate or pleural fluid. There is fatty infiltration of the liver. There are small hypodense nodules in the thyroid gland, suggest nonemergent thyroid ultrasound followup. Dictated by: Dictated on workstation # [id number]
== END 2018-10-24 23:58 | disposition home or self-care (01) ==
LOC: EDUNIT# 18:28 → ER 18:30
DX: R07.89 Other chest pain (principal); M79.89 Other specified soft tissue disorders; M96.89 Other intraoperative and postprocedural complications and disorders of the musculoskeletal system; K21.9 Gastro-esophageal reflux disease without esophagitis; F41.9 Anxiety disorder, unspecified; F43.10 Post-traumatic stress disorder, unspecified; F32.9 Major depressive disorder, single episode, unspecified; Z87.19 Personal history of other diseases of the digestive system; Z87.891 Personal history of nicotine dependence; Z88.2 Allergy status to sulfonamides; Z79.52 Long term (current) use of systemic steroids; Z98.890 Other specified postprocedural states; Z98.51 Tubal ligation status; Z86.61 Personal history of infections of the central nervous system; Z97.5 Presence of (intrauterine) contraceptive device; Z87.440 Personal history of urinary (tract) infections
CPT/HCPCS: 36415; 71046; 71275; 80053; 82150; 82550; 82553; 83690; 83735; 83874; 83880; 84484; 85025; 85610; 85730; 93005; 93041

== ENCOUNTER 2019-01-07 08:30 | Outpatient (RCR) | payer MEDICAID | END 2019-01-20 14:07 | disposition home or self-care (01) | PROVIDERS: ATTEND Orthopaedic Surgery | DX: S82.102D Unspecified fracture of upper end of left tibia, subsequent encounter for closed fracture with routine healing (principal); W13.9XXD Fall from, out of or through building, not otherwise specified, subsequent encounter; M21.372 Foot drop, left foot ==

== ENCOUNTER → 2019-01-09 | Outpatient (CLI) | payer MEDICAID ==
--- NOTE | 2019-01-09 13:33 | Diagnostic Imaging Report ---
PROCEDURE: US Thyroid. TECHNIQUE: Multiple real-time grayscale images were obtained of the thyroid in various projections. INDICATION: Thyroid nodules. FINDINGS: Right lobe measures 5.2 x 1.6 x 2.3 cm and the left lobe measures 4.7 x 1.6 x 1.7 cm. The isthmus is 2 mm in thickness. Left lobe does show a circumscribed hypoechoic nodule measuring 6 mm x 4 mm x 8 mm. No other left sided thyroid nodules are seen. Right lobe does contain a mixed solid and cystic nodule in the lower pole measuring 1.3 x 0.7 x 1.5 cm. No microcalcifications are seen. Second nodule is seen more superiorly which is complex measuring 1.0 x 1.1 x 1.1 cm. IMPRESSION: Bilateral thyroid nodules, largest on the right. Followup thyroid ultrasound in six months is recommended to confirm stability. Dictated by: Dictated on workstation # [id number]
== END ==
LOC: RAD 11:59
PROVIDERS: ATTEND Internal Medicine
DX: E04.2 Nontoxic multinodular goiter (principal)
CPT/HCPCS: 76536

== ENCOUNTER 2019-07-06 16:26 | Emergency (ER) | payer MEDICAID ==
[~2019-07-06] VITALS: Ht 177 cm; Wt 81.8 kg
--- NOTE | 2019-07-06 17:52 | Diagnostic Imaging Report ---
EXAMINATION: Left knee at 4:42 p.m. INDICATION: Fell, knee pain. TECHNIQUE: Three views were obtained. FINDINGS: The prior exam of 08/28/2018 noted a slightly displaced slightly impacted fracture of the tibial plateau. In the interval since the prior study, the patient has undergone a surgical procedure. There is now an orthopedic plate and screw fixation device securing the fracture fragments. The fracture appears to have nearly completely if not completely healed. There are few calcific densities in the soft tissues adjacent to the lateral aspect of the knee joint. These may be a sequela of the prior trauma as opposed to an acute injury. No other fracture is identified. There are screw hole defects within the distal femur. The soft tissues are unremarkable. There may be a small joint effusion. IMPRESSION: 1. There are posttraumatic and postsurgical changes involving the proximal tibia. The small calcific densities in the soft tissues lateral to the knee joint may be a sequela of the prior trauma as opposed to small acute avulsion fractures. Clinical follow-up is recommended. 2. There is no acute bony abnormality noted, otherwise. Dictated by: Dictated on workstation # [id number]
--- NOTE | 2019-07-06 17:56 | Diagnostic Imaging Report ---
INDICATION: Fell, hip pain. EXAMINATION: Left hip at 4:40 p.m. AP and lateral views were obtained. FINDINGS: There is no fracture, dislocation or acute bone abnormality evident. There is mild degenerative disease involving the hip joint. The degenerative changes seem similar to the gum cook film from the CT abdomen/pelvis exam of 03/22/2016. The soft tissues are unremarkable. IMPRESSION: There is no evidence for an acute bony abnormality. Dictated by: Dictated on workstation # [id number]
--- NOTE | 2019-07-06 17:59 | Diagnostic Imaging Report ---
INDICATION: Fell. EXAMINATION: Left femur at 4:46 p.m. AP and lateral views were obtained. FINDINGS: As noted on the left knee exam performed in conjunction with this study, there are screw hole defects in the distal femur. There is no fracture or acute bony abnormality evident. There is only mild degenerative disease of the hip joint. The knee joint was not visualized in its entirety. The soft tissues are unremarkable. IMPRESSION: There is no evidence for an acute bony abnormality of the left femur. Dictated by: Dictated on workstation # [id number]
--- NOTE | 2019-07-06 18:23 | ED Lower Extremity ---
General Chief Complaint: Lower Extremity Stated Complaint: FALL - LT LEG PAIN Nursing Triage Note: Tripped and fell onto the stairs, landing on her left upper leg. Is complaining of pain rated at 8/10 and is difficult to walk on leg. Had previous surgery on the left knee. Has taken tylenol for pain Nursing Sepsis Screen: No Definite Risk History of Present Illness Date Seen by Provider: Jul 06, 2019 Time Seen by Provider: 16:50 Initial Comments The patient is a 33-year-old female with a history of a severe fracture of what sounds like her knee and tibial plateau back in August requiring transfer to [place] for orthopedic repair. More recently she has been doing well with recovery but is still ambulating with a walker at baseline. She presents with concern for a ground-level fall onto the steps outside her house. She missed a step and fell onto her left side, hitting her left hip and knee on the ground. Reporting left hip and knee discomfort. She has been ambulatory with a more antalgic gait than usual since the injury, which occurred just prior to arrival. Denies hitting head, neck or any other part of her body aside from the leg and hip in question. Took Tylenol prior to arrival. Allergies and Home Medications Allergies Coded Allergies: Sulfa (Sulfonamide Antibiotics) (Unverified Allergy, Unknown, 10/02/18) Home Medications Citalopram Hydrobromide 20 Mg Tablet, 20 MG PO DAILY, (Reported) Famotidine 20 Mg Tablet, 20 MG PO DAILY, (Reported) Methylprednisolone 4 Mg Tab.ds.pk, 4 MG PO UD Prescribed by: ARIK LEYVA on 08/15/18 1125 Vit No.124/Iron/FA 1 Each Tablet, 1 EACH PO DAILY, (Reported) Patient Home Medication List Home Medication List Reviewed: Yes Review of Systems Constitutional: see HPI All Other Systems Reviewed Negative Unless Noted: Yes (Negative excepted noted.) Past Qgfzqyu-Lrxkuf-Kpuxav Hx Past Med/Social Hx: Reviewed Nursing Past Med/Soc Hx Patient Social History Type Used: Cigars, Cigarettes Former Smoker, Quit: December 18, 2016 2nd Hand Smoke Exposure: Yes Recent Foreign Travel: No Contact w/Someone Who Travel: No Recent Infectious Disease Expo: No Recent Hopitalizations: Yes (AUGUST 2018) Immunizations Up To Date Tetanus Booster (TDap): Unknown Date of Influenza Vaccine: May 28, 2017 Seasonal Allergies Seasonal Allergies: No Past Medical History Surgeries: Yes (left knee surgery, WISDOM TEETH, D&C) Section, Gallbladder, Orthopedic, Tubal Ligation Respiratory: No Cardiac: No Neurological: Yes Meningitis Reproductive Disorders: Yes Female Reproductive Disorders: Denies, 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 Sexually Transmitted Disease: Yes HIV/AIDS: No Genitourinary: Yes UTI-Chronic Gastrointestinal: Yes Gastroesophageal Reflux, Hiatal Hernia Musculoskeletal: No Endocrine: No HEENT: No Cancer: No Psychosocial: Yes Anxiety, PTSD, Depression Integumentary: No Blood Disorders: No Adverse Reaction/Blood Tranf: No Family Medical History Reviewed Nursing Family Hx No Pertinent Family Hx Physical Exam Vital Signs Vital Signs - First Documented 07/06/19 16:39 Temp 36.9 Pulse 86 Resp 18 B/P (MAP) 119/70 (86) Pulse Ox 99 Capillary Refill : Less Than 3 Seconds Height, Weight, BMI Height: 5'10.00" Weight: 186lbs. 0.0oz. 84.620702qu; 26.00 BMI Method:Stated General Appearance: no apparent distress This is a younger female appearing nontoxic and in no acute distress. Head is normocephalic and atraumatic. Neck is supple and nontender. Oropharynx is moist. Lungs are clear to auscultation in all stations. There is a normal S1 and S2 without rubs or gallops and capillary refill is appropriate, less than 2 seconds globally. Abdomen is soft, nontender and nondistended. Skin is warm and dry without cyanosis, clubbing or edema. Psychiatrically, the patient demonstrates appropriate mood and affect and is alert. Muscular skeletal examination is remarkable for right lower extremity with stigmata of extensive orthopedic surgical repair with well-healed surgical scars to the medial right knee and upper pretibial areas. There is mild tenderness without swelling, erythema or warmth to the lateral aspect of the superior left knee and the patient is able to range the knee fully with some mild discomfort. No pain with ranging of the left ankle or left foot. There is mild tenderness to palpation over the greater trochanter of the left hip and just appear to it without any erythema, warmth or swelling. There is mild pain with ranging of the left hip at these sites. The left lower extremity is neurovascularly intact distally. Progress/Results/Core Measures Results/Orders My Orders Orders - TOMMY OCAMPO MD Knee 3 View Left (07/06/19 16:38) Hip 2-3 View Left (07/06/19 16:38) Femur 2 View Left (07/06/19 16:50) Oxycodone Immediate Rel Tablet (Oxyir Ta (07/06/19 18:00) Medications Given in ED Current Medications Medications Dose Ordered Sig/Saúl Route Start Time Stop Time Status Last Admin Dose Admin Oxycodone HCl 5 mg ONCE ONCE PO 07/06/19 18:00 07/06/19 18:01 DC 07/06/19 18:01 5 MG Vital Signs/I&O 07/06/19 16:39 Temp 36.9 Pulse 86 Resp 18 B/P (MAP) 119/70 (86) Pulse Ox 99 Blood Pressure Mean: 86 POS Progress Progress Note : Time: 18:24 Progress Note Patient is feeling better after pain medication here in the emergency department. She is in no acute distress. Plain films unremarkable aside from extensive evidence of postsurgical change with hardware in place to the left knee. There are also some lucencies which radiology feels most likely represent old avulsions or calcifications from her prior serious knee injury. Given quite mild discomfort to the lateral superior aspect of the left knee which does not correlate well with the location of these lucencies, much less likely acute avulsion fracture. Patient is to follow up very closely with her primary care physician in the clinic at [facility] in the next 1-2 days. We will write her a work note. She is unable to take NSAIDs secondary to a concern for ulcer. She may take Tylenol for discomfort and is to rest, ice and elevate her leg. She understands if she feels worse that of better or develops other new symptoms of concern that she should return right away for reevaluation. All questions are answered. Diagnostic Imaging Diagonstic Imaging: Xray Comments FEMUR 2 VIEW LEFT INDICATION: Fell. EXAMINATION: Left femur at 4:46 p.m. AP and lateral views were obtained. FINDINGS: As noted on the left knee exam performed in conjunction with this study, there are screw hole defects in the distal femur. There is no fracture or acute bony abnormality evident. There is only mild degenerative disease of the hip joint. The knee joint was not visualized in its entirety. The soft tissues are unremarkable. IMPRESSION: There is no evidence for an acute bony abnormality of the left femur. HIP 2-3 VIEW LEFT INDICATION: Fell, hip pain. EXAMINATION: Left hip at 4:40 p.m. AP and lateral views were obtained. FINDINGS: There is no fracture, dislocation or acute bone abnormality evident. There is mild degenerative disease involving the hip joint. The degenerative changes seem similar to the head of sales and marketing film from the CT abdomen/pelvis exam of 03/22/2016. The soft tissues are unremarkable. IMPRESSION: There is no evidence for an acute bony abnormality. KNEE 3 VIEW LEFT EXAMINATION: Left knee at 4:42 p.m. INDICATION: Fell, knee pain. TECHNIQUE: Three views were obtained. FINDINGS: The prior exam of 08/28/2018 noted a slightly displaced slightly impacted fracture of the tibial plateau. In the interval since the prior study, the patient has undergone a surgical procedure. There is now an orthopedic plate and screw fixation device securing the fracture fragments. The fracture appears to have nearly completely if not completely healed. There are few calcific densities in the soft tissues adjacent to the lateral aspect of the knee joint. These may be a sequela of the prior trauma as opposed to an acute injury. No other fracture is identified. There are screw hole defects within the distal femur. The soft tissues are unremarkable. There may be a small joint effusion. IMPRESSION: 1. There are posttraumatic and postsurgical changes involving the proximal tibia. The small calcific densities in the soft tissues lateral to the knee joint may be a sequela of the prior trauma as opposed to small acute avulsion fractures. Clinical follow-up is recommended. 2. There is no acute bony abnormality noted, otherwise. Dictated by: Dictated on workstation # [id number] Departure Impression Primary Impression: Fall (on) (from) other stairs and steps, initial encounter Additional Impressions: Left hip pain Left knee pain Qualified Codes: M25.562 - Pain in left knee Disposition: HOME, SELF-CARE Condition: Improved Departure-Patient Inst. Referrals: [facility] [place] (PCP) Primary Care Physician ISHA DE SOUZA APRN (Family) Primary Care Physician Patient Instructions: Hip Pain, Knee Pain Add. Discharge Instructions: Follow-up with your primary care provider in the clinic in the next 1-2 days. Rest, ice and elevate your leg to reduce swelling. You may take 1000mg of Tylenol every 8 hours as needed for pain, and may take a morphine pill every 6 hours for breakthrough pain, but do not drive or operate machinery or work on the morphine pills as they can make you sleepy. Return right away for worsened symptoms or other concern. Scripts [morphine IR 15mg] No Conflict Check 15 MG PO Q6H for Breakthrough Pain, #7 TAB 0 Refills Prov: TOMMY OCAMPO MD 07/06/19 TOMMY OCAMPO MD Jul 06, 2019 18:23 POS
[2019-07-06] MEDS ORDERED: MORPHINE IR PO (18:29)
[2019-07-06 18:46] VITALS: BP 104/66
== END 2019-07-06 19:04 | disposition home or self-care (01) ==
LOC: EDUNIT# 16:26 → ER FS 16:28
DX: M25.552 Pain in left hip (principal); M25.562 Pain in left knee; K21.9 Gastro-esophageal reflux disease without esophagitis; F43.10 Post-traumatic stress disorder, unspecified; F41.9 Anxiety disorder, unspecified; F32.9 Major depressive disorder, single episode, unspecified; Z87.81 Personal history of (healed) traumatic fracture; Z88.2 Allergy status to sulfonamides; Z79.52 Long term (current) use of systemic steroids; Z87.891 Personal history of nicotine dependence; Z77.22 Contact with and (suspected) exposure to environmental tobacco smoke (acute) (chronic); Z98.51 Tubal ligation status; Z87.440 Personal history of urinary (tract) infections; W10.9XXA Fall (on) (from) unspecified stairs and steps, initial encounter
CPT/HCPCS: 73502; 73552; 73562

== ENCOUNTER → 2019-07-24 | Outpatient (CLI) | payer MEDICAID ==
[~2019-07-24] MED LIST changes: +BREX0.5T PO; +CHOL400T PO; +HYDR-3584 PO; +HYDR50TA76 PO; +MELA1TAB20 PO; +MORPHINE IR PO; +NITR-65 PO; +OMEP40CA27 PO; -OMEP40CA36 PO; +PANT40TA2 PO; +PRAM1TAB5 PO; +TRM50T PO; +VENL150C PO; +VENL150C98 PO; +iron PO
--- NOTE | 2019-07-24 17:01 | Diagnostic Imaging Report ---
INDICATION: Right shoulder pain. AP, and transscapular views of the right shoulder are obtained. No fracture or dislocation is seen. There is no acute bony abnormality. Glenohumeral joint and AC joint appear grossly unremarkable. IMPRESSION: Negative right shoulder. No change from 03/02/2017. Dictated by: Dictated on workstation # [id number]
== END ==
LOC: RAD FS 10:43
PROVIDERS: ATTEND Nurse Practitioner Family
DX: M25.511 Pain in right shoulder (principal)
CPT/HCPCS: 73030

== ENCOUNTER 2019-08-14 20:23 | Outpatient (CLI) | payer MEDICAID ==
[~2019-08-14 20:23] MED LIST changes: -BREX0.5T PO; -CHOL400T PO; -HYDR-3584 PO; -HYDR50TA76 PO; -MELA1TAB20 PO; -NITR-65 PO; -OMEP40CA27 PO; +OMEP40CA36 PO; -PANT40TA2 PO; -PRAM1TAB5 PO; -TRM50T PO; -VENL150C PO; -VENL150C98 PO; -iron PO
== END 2019-08-15 07:34 | disposition home or self-care (01) ==
LOC: SLEEP 20:23
PROVIDERS: ATTEND Nurse Practitioner Family
DX: Z23 Encounter for immunization (principal); G89.29 Other chronic pain; M25.511 Pain in right shoulder; M79.645 Pain in left finger(s); G47.69 Other sleep related movement disorders
CPT/HCPCS: 95810

== ENCOUNTER 2019-08-23 22:38 | Emergency (ER) | payer MEDICAID ==
[~2019-08-23] VITALS: Ht 177.8 cm; Wt 94.3 kg
[2019-08-23 23:05] LABS: BILIRUBIN,URINE NEGATIVE (NEGATIVE); CLARITY,URINE CLEAR; COLOR,URINE YELLOW; GLUCOSE, URINE (UA) NEGATIVE (NEGATIVE); KETONES,URINE NEGATIVE (NEGATIVE); LEUKOCYTE ESTERASE ,URINE NEGATIVE (NEGATIVE); NITRITE,URINE NEGATIVE (NEGATIVE); PROTEIN,URINE NEGATIVE (NEGATIVE)
[2019-08-23 23:09] LABS: BACTERIA,URINE MODERATE /HPF; SQUAMOUS EPITHELIAL CELL,UR 25-50 /HPF
[2019-08-23] MEDS ORDERED: NITR-65 PO (23:15)
--- NOTE | 2019-08-23 23:16 | ED GU-Female ---
General Chief Complaint: - Urinary Stated Complaint: LOW BACK JANNET/STOMACH HUTS Nursing Triage Note: Patient states that she began having burning with urination 2 days ago with back pain starting yesterday. Patient has a history of UTI and states she believes that she has one. Nursing Sepsis Screen: No Definite Risk Source: patient Exam Limitations: no limitations History of Present Illness Date Seen by Provider: Aug 23, 2019 Time Seen by Provider: 23:13 Initial Comments Patient complains lower abdominal and lower back pain for the past 2-3 days. She also has dysuria. No fevers or chills. She has a history of urinary tract infections and believes this is one. Allergies and Home Medications Allergies Coded Allergies: Sulfa (Sulfonamide Antibiotics) (Unverified Allergy, Unknown, 10/02/18) Home Medications Citalopram Hydrobromide 20 Mg Tablet, 20 MG PO DAILY, (Reported) Famotidine 20 Mg Tablet, 20 MG PO DAILY, (Reported) Methylprednisolone 4 Mg Tab.ds.pk, 4 MG PO UD Prescribed by: ARIK LEYVA on 08/15/18 1125 Vit No.124/Iron/FA 1 Each Tablet, 1 EACH PO DAILY, (Reported) [morphine IR 15mg] , 15 MG PO Q6H Prescribed by: TOMMY OCAMPO on 07/06/19 2619 Patient Home Medication List Home Medication List Reviewed: Yes Review of Systems Review of Systems Constitutional: no symptoms reported Respiratory: no symptoms reported Cardiovascular: no symptoms reported Genitourinary: see HPI Past Pwgezka-Dpuowy-Dtjaft Hx Patient Social History Alcohol Use: Denies Use Recreational Drug Use: No Smoking Status: Never a Smoker Type Used: Cigars, Cigarettes Former Smoker, Quit: December 18, 2016 2nd Hand Smoke Exposure: Yes Recent Foreign Travel: No Contact w/Someone Who Travel: No Recent Infectious Disease Expo: No Recent Hopitalizations: Yes (AUGUST 2018--LEFT LEG FX/REPAIRS) Physical Abuse: No Sexual Abuse: No Mistreated: No Fear: No Immunizations Up To Date Tetanus Booster (TDap): Unknown Date of Influenza Vaccine: May 28, 2017 Seasonal Allergies Seasonal Allergies: No Past Medical History Surgeries: Yes Section, Gallbladder, Orthopedic, Tubal Ligation Respiratory: No Cardiac: No Neurological: Yes Meningitis Reproductive Disorders: Yes Female Reproductive Disorders: Denies, 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 [employer] History: IUD, Tubal Ligation Sexually Transmitted Disease: Yes HIV/AIDS: No Genitourinary: Yes UTI-Chronic Gastrointestinal: Yes Gastroesophageal Reflux, Hiatal Hernia Musculoskeletal: Yes (LEFT LEG FX/REPAIR 08/2018) Fractures Endocrine: No HEENT: No Cancer: No Psychosocial: Yes Anxiety, PTSD, Depression Integumentary: No Blood Disorders: No Adverse Reaction/Blood Tranf: No Family Medical History No Pertinent Family Hx Physical Exam Vital Signs Vital Signs - First Documented 08/23/19 22:53 Temp 36.3 Pulse 94 Resp 18 B/P (MAP) 108/77 (87) Pulse Ox 98 O2 Delivery Room Air Capillary Refill : Less Than 3 Seconds Height, Weight, BMI Height: 5'10.00" Weight: 186lbs. 0.0oz. [id number]; 29.00 BMI Method:Stated General Appearance: WD/WN, no apparent distress Neck: supple Cardiovascular: regular rate, rhythm Respiratory: lungs clear Gastrointestinal: soft Extremities: normal inspection Neurologic/Psychiatric: alert, normal mood/affect Skin: normal color, warm/dry Progress/Results/Core Measures Suspected Sepsis Recent Fever Within 48 Hours: No Infection Criteria Present: Suspected New Infection New/Unexplained Altered Menta: No Sepsis Screen: No Definite Risk SIRS Temperature: Pulse: 94 Respiratory Rate: 18 Blood Pressure 108 /77 Mean: 87 Results/Orders Lab Results Laboratory Tests Test 08/23/19 22:52 Range/Units Urine Color YELLOW Urine Clarity CLEAR Urine pH 6.0 5-9 Urine Specific Brent 1.010 L 1.016-1.022 Urine Protein NEGATIVE NEGATIVE Urine Glucose (UA) NEGATIVE NEGATIVE Urine Ketones NEGATIVE NEGATIVE Urine Nitrite NEGATIVE NEGATIVE Urine Bilirubin NEGATIVE NEGATIVE Urine Urobilinogen 0.2 < = 1.0 MG/DL Urine Leukocyte Esterase NEGATIVE NEGATIVE Urine RBC (Auto) NEGATIVE NEGATIVE Urine RBC NONE /HPF Urine WBC 10-25 H /HPF Urine Squamous Epithelial Cells 25-50 H /HPF Urine Crystals NONE /LPF Urine Bacteria MODERATE H /HPF Urine Casts NONE /LPF Urine Mucus NEGATIVE /LPF Urine Culture Indicated YES Urine Test NEGATIVE NEGATIVE My Orders Orders - PAM DUDLEY MD Hcg,Qualitative Urine (08/23/19 22:54) Ua Culture If Indicated (08/23/19 22:54) Urine Culture (08/23/19 22:52) Vital Signs/I&O 08/23/19 22:53 Temp 36.3 Pulse 94 Resp 18 B/P (MAP) 108/77 (87) Pulse Ox 98 O2 Delivery Room Air Capillary Refill : Less Than 3 Seconds Blood Pressure Mean: 87 Departure Impression Primary Impression: Urinary tract infection Disposition: HOME, SELF-CARE Condition: Improved Departure-Patient Inst. Decision time for Depature: 23:14 Referrals: [facility] (PCP) Primary Care Physician ISHA DE SOUZA APRN (Family) Primary Care Physician Patient Instructions: Urinary Tract Infection, Adult (DC) Add. Discharge Instructions: Drink plenty of fluids. Empty bladder frequently. Take antibiotics as prescribed. See your doctor for improving. All discharge instructions reviewed with patient and/or family. Voiced understanding. Scripts Nitrofurantoin Monohyd/M-Cryst (Macrobid 100 mg Capsule) 100 Mg Capsule 1 TAB PO BID, #10 TAB Prov: PAM DUDLEY MD 08/23/19 PAM DUDLEY MD Aug 23, 2019 23:16
[2019-08-23 23:21] VITALS: BP 108/77
[2019-08-23] MEDS ORDERED: NITROFURANTOIN 100 MG (MACROBID) CAPSULE PO ONE (23:30)
== END 2019-08-23 23:21 | disposition home or self-care (01) ==
LOC: EDUNIT# 22:38 → ER FS 22:41
DX: N39.0 Urinary tract infection, site not specified (principal); F41.9 Anxiety disorder, unspecified; F43.10 Post-traumatic stress disorder, unspecified; F32.9 Major depressive disorder, single episode, unspecified; K21.9 Gastro-esophageal reflux disease without esophagitis; Z88.2 Allergy status to sulfonamides; Z87.891 Personal history of nicotine dependence; Z77.22 Contact with and (suspected) exposure to environmental tobacco smoke (acute) (chronic); Z98.51 Tubal ligation status; Z87.440 Personal history of urinary (tract) infections
CPT/HCPCS: 81000; 84703; 87088; 99283

== ENCOUNTER 2019-09-02 06:07 | Outpatient (CLI) | payer MEDICAID ==
[~2019-09-02] VITALS: Ht 177.8 cm; Wt 92.3 kg
[~2019-09-02 06:07] MED LIST changes: +NITR-65 PO; +OMEP40CA27 PO; -OMEP40CA36 PO
[2019-09-02] MEDS ORDERED: iron PO (09:34)
[2019-09-02] MEDS ORDERED: PRAM1TAB5 PO (09:34)
[2019-09-02] MEDS ORDERED: TRM50T PO (09:34)
[2019-09-02] MEDS ORDERED: BREX0.5T PO (09:34)
[2019-09-02] MEDS ORDERED: MELA1TAB20 PO (09:34)
[2019-09-02] MEDS ORDERED: HYDR50TA76 PO (09:34)
[2019-09-02] MEDS ORDERED: CYCL10TA9 PO (09:34)
[2019-09-02] MEDS ORDERED: VENL150C98 PO (09:34)
[2019-09-02] MEDS ORDERED: HYDR-3584 PO (09:34)
[2019-09-02] MEDS ORDERED: CHOL400T PO (09:34)
[2019-09-03] MEDS ORDERED: VENL150C PO (09:39)
[2019-09-03] MEDS ORDERED: PANT40TA2 PO (09:41)
== END 2019-09-02 09:36 | disposition home or self-care (01) ==
LOC: PREOP 06:07
PROVIDERS: ATTEND Surgery
DX: Z01.818 Encounter for other preprocedural examination (principal)